=== PATIENT | male | born 1930 | race Caucasian/White ===

== ENCOUNTER 2017-03-30 10:51 | Inpatient (IN) ==
[2017-03-30 11:22] LABS: MANUAL DIFF NEEDED? NO
[2017-03-30 11:31] LABS: BASO% 0.2 % (0.0-0.8); EOS# 0.07 X1000 (0.0-0.7); EOS% 0.8 % (0.0-10.0); HEMATOCRIT 28.6 % (42.0-52.0); HEMOGLOBIN 9.2 g/dL (14.0-18.0); LYMPH# 1.99 X1000 (1.2-3.4); LYMPH% 21.9 % (20.5-51.1); MCH 31.7 PG (27-31); MCHC 32.2 g/dL (33-37); MCV 98.6 FL (81-99); MONO# 0.79 X1000 (0.11-0.59); MONO% 8.7 % (1.7-9.3); MPV 10.4 FL (7.4-10.4); NEUT% 68.4 % (42.2-75.2); PLT 236 X1000 (130-400)
[2017-03-30 11:38] LABS: PTT 38.2 Seconds (22.0-36.0)
[2017-03-30 11:39] LABS: INR 2.55; PROTIME 28.4 Seconds (9.2-11.7)
[2017-03-30 11:56] LABS: AGAP 13; ALBUMIN 3.5 g/dL (3.5-5.0); ALKALINE PHOSPHATASE 111 U/L (32-122); AMYLASE 47 U/L (20-200); BUN 25 mg/dL (8-22); CALCIUM 8.5 mg/dL (8.8-10.2); CHLORIDE 104 mmol/L (98-107); COSMO 287; GOT 12 U/L (10-34); GPT 6 U/L (10-44); LIPASE 10 U/L (13-60); POTASSIUM 4.6 mmol/L (3.5-5.1); SODIUM 141 mmol/L (136-145); TCO2 24 mmol/L (25-35); TOTAL BILIRUBIN 0.66 mg/dL (0.20-1.00); TOTAL PROTEIN 6.5 g/dL (6.3-8.3)
[2017-03-30] MEDS ORDERED: NS 1,000 ML IV ONE (12:25)
[2017-03-30] MEDS ORDERED: PROTONIX IV ONE (13:42)
[2017-03-30] MEDS ORDERED: SODIUM CHLORIDE 0.9% INJ ONE (13:42)
--- NOTE | 2017-03-30 14:16 | PROVIDER DOCUMENTATION ---
This chart was entered by Eloisa Jon Scribe, acting as scribe for Urban Hidalgo PA. HPI-Abdominal Pain/GI Problem - General Chief Complaint: Rectal Bleeding Stated Complaint: RECTAL BLEEDING Time Seen by Provider: 03/30/17 12:17 Source: patient - History of Present Illness-ABD Nature of Presenting Problems: Pt is an 87 year old male who came to the ED with a cc of rectal bleeding since yesterday. Pt reports the blood is bright red. The pt reports he is currently on blood thinners for blood clots in his legs. PT has been on blood thinners for ten years. Pt reports he quit smoking 4 years ago. Pt reports he is weak and just doesn't feel well. Denies fever, n/v, and chest pain. Quality of Pain: reports: none Onset/Duration: reports: 24 hours ago Timing: reports: still present Activities at Onset: reports: none Modifying Factors: improves with: nothing Associated Symptoms: reports: weakness Last BM: unsure Dark Stools Present?: reports: bright red blood Emesis Description: reports: none Bruising or Bleeding Gums?: No Similar Symptoms Previously?: No Recently seen or treated by another doctor?: No Review of Systems - Adult - REVIEW OF SYSTEMS - ADULT Constitutional: denies: chills, fever Eyes: reports: no symptoms reported Ears, Nose, Mouth & Throat: reports: no symptoms reported Cardiovascular: reports: no symptoms reported Respiratory: denies: cough, shortness of breath Gastrointestinal: reports: rectal bleeding. denies: abdominal pain, diarrhea, nausea, vomiting Genitourinary: reports: no symptoms reported Musculoskeletal: reports: muscle weakness. denies: frequent leg cramps, joint swelling, neck pain Integumentary: reports: no symptoms reported Neurological: reports: no symptoms reported Psychiatric: reports: no symptoms reported Endocrine: reports: no symptoms reported Hematologic/Lymphatic: reports: no symptoms reported Allergic/Immunologic: reports: no symptoms reported All Other Systems: Reviewed and Negative Past History - Adult - PAST MEDICAL HISTORY-ADULT Review of Records: reports: Nursing Assessment Review Major Childhood Illnesses: reports: denies history Cardiovascular: reports: denies history Respiratory: reports: denies history Gastrointestinal: reports: denies history Obstetrical/Gynecological: reports: denies history Genitourinary: reports: denies history Musculoskeletal: reports: denies history Neurological: reports: denies history Endocrine/Immune: reports: denies history Other Conditions: reports: denies history - IMMUNIZATION STATUS Childhood Immunizations: See Nurse Assessment Flu Vaccine: See Nurse Assessment - FAMILY HISTORY Family History: reviewed, not pertinent Physical Exam-General - PHYSICAL EXAM-ADULT Initial Vital Signs Reviewed: Yes - CONSTITUTIONAL General Appearance: alert, mild distress - EYES Eyes: PERRL/EOMI, pink conjunctivae - HEAD, EARS, NOSE, MOUTH & THROAT HENMT: normocephalic/atraumatic, moist mucous membranes - NECK Neck: non-tender, full range of motion - RESPIRATORY Respiratory: chest non-tender, lungs clear, normal breath sounds - CARDIOVASCULAR Cardiovascular: normal peripheral pulses, regular rate, rhythm - GASTROINTESTINAL (ABDOMEN) Abdominal Exam: normal bowel sounds, non tender, soft - GENITOURINARY Rectal Exam: normal rectal tone, black stool, blood streaked stool, other ( [place] RED BLOOD) Hemoccult Exam: heme positive stool - LYMPHATIC Lymphatic: no adenopathy - MUSCULOSKELETAL Back Exam: normal inspection, no CVA tenderness Extremity: normal range of motion, non-tender - SKIN Integumentary: normal color, normal turgor - NEUROLOGIC Neurologic: grossly normal - PSYCHIATRIC Psych/Mental Status: normal mood/affect, normal thought content, normal thought process, oriented x 3 Progress - PLAN OF CARE/RESULTS Progress/Plan/Lab Results: Vital Signs - 8 hr 03/30/17 11:07 Temperature 97.4 F L Pulse Rate 112 H Respiratory Rate 18 Blood Pressure 95/60 O2 Sat by Pulse Oximetry 100 Laboratory Results - last 24 hr 03/30/17 03/30/17 03/30/17 11:14 11:14 11:14 WBC 9.10 RBC 2.90 L Hgb 9.2 L Hct 28.6 L MCV 98.6 MCH 31.7 H MCHC 32.2 L RDW Std Deviation 14.9 H Plt Count 236 MPV 10.4 Immature Gran % (Auto) 0.0 Neut % (Auto) 68.4 Lymph % (Auto) 21.9 [place] % (Auto) 8.7 Eos % (Auto) 0.8 Baso % (Auto) 0.2 Immature Gran # (Auto) 0.00 Neut # (Auto) 6.23 Lymph # (Auto) 1.99 [place] # (Auto) 0.79 H Eos # (Auto) 0.07 Baso # (Auto) 0.02 PT 28.4 H INR 2.55 PTT (Actin FS) 38.2 H Sodium 141 Potassium 4.6 Chloride 104 Carbon Dioxide 24 L Anion Gap 13 BUN 25 H Creatinine 1.1 Estimated GFR/1.73 m2 > 60 BUN/Creatinine Ratio 23 Glucose 130 H Calculated Osmolality 287 Calcium 8.5 L Total Bilirubin 0.66 AST 12 ALT 6 L Alkaline Phosphatase 111 Total Protein 6.5 Albumin 3.5 Globulin 3.0 Albumin/Globulin Ratio 1.2 Amylase 47 Lipase 10 L Orders Category Date Time Status Saline Loc NOW Care 03/30/17 12:25 Active AMYLASE [CHEM] Stat Lab 03/30/17 11:14 Completed CBC WITH ELECTRONIC DIFF [HEME] Stat Lab 03/30/17 11:14 Completed COMPREHENSIVE METABOLIC PANEL [CHEM] Stat Lab 03/30/17 11:14 Completed LIPASE [CHEM] Stat Lab 03/30/17 11:14 Completed PROTIME WITH INR [COAG] Stat Lab 03/30/17 11:14 Completed PTT [COAG] Stat Lab 03/30/17 11:14 Completed TYPE & SCREEN [BBK] Stat Lab 03/30/17 12:33 Ordered 0.9% Sodium Chloride Inj [Ns] 1,000 ml Med 03/30/17 12:25 Active IV 999 mls/hr Result Diagrams: 03/30/17 11:14 03/30/17 11:14 - CONSULTS/PCP/HOSPITALIST Notification #1 *Consult/PCP/Hospitalist*: Dr. Dawson (GI) Time Discussed: 14:15 Reason/Comments: AGREE C ADMISSION. WILL CONSULT. #2 Consult: Keshav HAYDEN / Dr. Bates (Hospitalist) Time Discussed: 14:15 Reason/Comments: WILL ADMIT PT AND SEE IN THE ER AND WRITE ALL ORDERS. Departure - Departure Date of Disposition Decision: 03/30/17 Time of Disposition Decision: 14:14 DIAGNOSIS: GI bleed Qualifiers: GI bleed type/associated pathology: unspecified gastrointestinal hemorrhage type Qualified Code(s): K92.2 - Gastrointestinal hemorrhage, unspecified Disposition: ADMITTED INPATIENT 09 Certified Medical Emergency: Emergent Condition: Stable Referrals and Follow-Ups: Kael Thompson [Primary Care Provider] - - Critical Care Note This patient required my direct & personal management of CC.: No Attestation - Physician/ JAVED Attestation Patient care was provided by Advanced Practice Provider:: Yes Advanced Practice Provider:: Urban Hidalgo Advanced Practice Provider documentation review:: The Mid-level provider documentation, treatment plan and medical decision making was reviewed by the physician who agrees with all treatment and medical decision making by the MLP. The physician spent face to face time with patient:: No Advanced Practice Provider documentation review:: Supervising physician onsite and consulted in the evaluation and care of this patient. The physician did not have a face to face encounter with the patient. This chart was documented by the indicated scribe, (Eloisa Jon Scribe) and accurately reflects the services I performed and decisions made by me, Urban Hidalgo PA, as attested by the provider's signature.
[2017-03-30] MEDS ORDERED: VITAMIN K PO ONE ×2 (15:39→15:43)
[2017-03-30 17:43] LABS: HEMATOCRIT 24.9 % (42.0-52.0)
--- NOTE | 2017-03-30 18:43 | Diag Imaging Result Doc PS360 ---
EXAM: CT ABD/PELVIS W/ IV CONT ONLY HISTORY: painful rectal bleeding TECHNIQUE: CT abdomen and pelvis with intravenous contrast. Dose reduction protocol. COMPARISON: None. FINDINGS: There is a moderate sized hiatal hernia. Mild fatty infiltration of the liver. Normal gallbladder, pancreas, spleen, and adrenal glands. There is a mixed density mass arising from the upper pole of the right kidney measuring 5.9 x 5.3 x 5.7 cm. There are bilateral nonobstructing renal stones. No hydronephrosis. A 3.9 cm cyst arises from the lateral left kidney. There is an infrarenal abdominal aortic aneurysm measuring 5.4 cm in transverse dimension, 5.8 cm in AP dimension and at least 10 cm in length. This extends into the proximal right common iliac artery with maximum diameter of 3.3 cm. 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 Moderate atherosclerosis. No inflammation about the cecum. There are scattered colonic diverticula. The urinary bladder is moderately distended. The prostate is not enlarged. There is an inferior vena caval filter. The bones are osteopenic. Mild superior endplate compression fracture to the L4 vertebra. IMPRESSION: 1.Right renal mass consistent with a renal cell carcinoma 2.Nonobstructing renal stones 3.Large abdominal aortic aneurysm 4.Moderate sized hiatal hernia 5.Diverticulosis 6.The bones are osteopenic and there is a mild compression fracture to the L4 vertebra Electronically signed by Martin Woods 03/30/2017 6:40 PM
--- NOTE | 2017-03-30 21:19 | HISTORY AND PHYSICAL ---
PCP: Dr. Kael Thompson. CHIEF COMPLAINT: Abdominal pain, rectal bleeding. HISTORY OF PRESENT ILLNESS: Mr. 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 He has been having multiple episodes of bright red bloody stools that had filled up the toilet since yesterday, he is also having some abdominal distention and pain. He came to the ER today for evaluation with his family. When he got here he was noted to have hemoglobin and hematocrit of 9.2 and 28.6. We do not have any other laboratory data to compare to. His INR is 2.5. His chemistry is unremarkable. His vital signs are stable. We are going to give him some p.o. vitamin K and admit him to the floor for further treatment evaluation. PAST MEDICAL HISTORY: 1. BPH. 2. 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 3. History of aortic aneurysm. Lumbar spine MRI done in 2013 shows 4.2 cm infrarenal abdominal aortic aneurysm. SURGICAL HISTORY: He has had an IVC filter placed and lithotripsy. SOCIAL HISTORY: Patient quit smoking some time ago but he still dips about a can of chewing tobacco a day. He drinks occasional beer. Denies drug use. He is . He lives in assisted living here in town. FAMILY HISTORY: Noncontributory. REVIEW OF SYSTEMS: Fourteen-point review of systems was obtained found to be negative with the exception of the HPI. ALLERGIES: No known drug allergies. HOME MEDICATIONS: Flomax 0.4 mg daily, Coumadin 4 mg at bedtime. PHYSICAL EXAMINATION: VITAL SIGNS: Blood pressure is 95/60, heart rate 112, respiratory 18, O2 saturation 100% on room air, temperature is 97.4 degrees. GENERAL: This is an elderly male lying in hospital bed, no acute distress. NEUROLOGIC: The patient is awake, alert, oriented. He follows commands without focal deficits. HEENT: Head is atraumatic, normocephalic. His pupils are equal, round, reactive to light. Oral mucosa is moist. Trachea is midline. No JVD. CHEST: Clear to auscultation bilaterally. CV: Regular rate and rhythm. S1-S2 is noted. No murmurs. GI: Slightly distended and diffuse tenderness to palpation is noted. EXTREMITIES: No edema, clubbing noted. He does have venous stasis noted to both lower extremities. Pulses are diminished but palpable bilaterally. DIAGNOSTIC DATA: WBC 9.1, hemoglobin 9.2, hematocrit 28.6, platelet count 236, 000. INR 2.55, sodium 141, potassium 4.6, chloride 104, CO2 24, anion gap 13, BUN 25, creatinine 1.1, glucose 130, calcium 8.5, AST 12, ALT 6, alkaline phosphatase 111, lipase is 10. ASSESSMENT/PLAN: 1. Abdominal pain and distention/rectal bleeding: We are going to go ahead and CT the patient's abdomen and pelvis now with contrast. Will stop his Coumadin and give Vit K and consult with Dr. Dawson. We will continue IV fluids as well. 2. Acute blood loss anemia: We are going to check iron studies, type and screen and trend his hemoglobin and hematocrit every 6 hours. 3. History of abdominal aortic aneurysm: Again CT abdomen and pelvis is pending. He does have some mild abdominal distention but no signs that he is having dissection. 4. History of deep vein thrombosis: We are going to stop the patient's Coumadin especially since he has an IVC filter. We are going to give him vitamin K, check daily INR. 5. Deep vein thrombosis prophylaxis contraindicated as the patient has history of deep vein thrombosis and he has gastrointestinal bleeding. He does have an IVC filter however. Further recommendations to follow. I have seen and examined patient. I have reviewed all his lab work and Imagine studies. Patient has symptomatic anemia secondary to GI blood loss. Patient is also on coumadin with elevated INR. Will group and x-match. transfuse 1 FFP. Serial H and H. Dictated by JACKELYN Moses for Bert Bates MD cc: MD Bert Harper MD [facility]
[2017-03-30] MEDS: NS 1,000 ML IV SCH (22:04)
[2017-03-30 22:56] LABS: HEMATOCRIT 23.2 % (42.0-52.0); HEMOGLOBIN 7.3 g/dL (14.0-18.0)
[2017-03-31] MEDS ORDERED: NS 500 ML IV ONE (01:47)
[2017-03-31 02:17] LABS: INR 2.7; PROTIME 30.2 Seconds (9.2-11.7)
[2017-03-31 02:20] LABS: HEMATOCRIT 18.3 % (42.0-52.0)
[2017-03-31 02:21] LABS: HEMOGLOBIN 5.8 g/dL (14.0-18.0)
[2017-03-31] MEDS: NS 1,000 ML IV SCH ×2 (09:08→21:09)
[2017-03-31 10:25] LABS: HEMATOCRIT 24.2 % (42.0-52.0); HEMOGLOBIN 7.8 g/dL (14.0-18.0); MCH 29.9 PG (27-31); MCHC 32.2 g/dL (33-37); MCV 92.7 FL (81-99); MPV 10.1 FL (7.4-10.4); RBC 2.61 XMIL (4.7-6.1); RETIC% 2.15 % (0.8-2.1); RETIC-HE 35.4 PG (28.2-36.6)
[2017-03-31 10:52] LABS: AGAP 10; BUN 29 mg/dL (8-22); CALCIUM 7.8 mg/dL (8.8-10.2); CHLORIDE 110 mmol/L (98-107); COSMO 293; INR 1.67; MAGNESIUM 2.2 mg/dL (1.5-2.7); POTASSIUM 4.2 mmol/L (3.5-5.1); PROTIME 18.1 Seconds (9.2-11.7); SODIUM 144 mmol/L (136-145); TCO2 24 mmol/L (25-35)
[2017-03-31] MEDS: SODIUM CHLORIDE 0.9% INJ SCH (15:47)
[2017-03-31] MEDS: PROTONIX IV SCH (15:48)
--- NOTE | 2017-03-31 16:04 | PROGRESS NOTE ---
DATE: 03/31/2017 SUBJECTIVE: Today Mr. Arriaga referred to be doing a little better. He continues to be severely dizzy whenever he stands up. OBJECTIVE: Vital Signs: Blood pressure is 116/54, pulse of 80, respirations 19, temperature is 98.1 degrees. General: Mr. Arriaga is an 87-year-old male. He is in bed. He is not in any distress. HEENT: Mucosa is slightly pale. Anicteric. Acyanotic. Neck: Supple. No JVD. Chest: Good air entry bilateral. I did not appreciate any crepitations or rhonchi. Cardiovascular: Regular rate and rhythm. There are no murmurs, no rubs, no gallops. Abdomen: Soft and distended. Bowel sounds are present. Extremities: No pedal edema. The patient has bilateral lower extremity discoloration of the leg consistent with longstanding stasis dermatitis. LABORATORY DATA: WBC is 11.77, hemoglobin is 7.8. This is after 2 units of PRBC transfusion. The patient was at 5.8. Platelet count is 164,000. Chemistry is reviewed, stable. B12 is 111, which is remarkably low, and ferritin is 87, which is also relatively low for him. ASSESSMENT AND PLAN: 1. Symptomatic anemia. 2. Anemia secondary to gastrointestinal blood loss. 3. Iron deficiency and B12 deficiency. 4. Large infrarenal aortic aneurysm. We will get surgery to evaluate this. 5. Right renal mass consistent with renal cell carcinoma. Urology will be consulted, as well as Hematology/Oncology. SUMMARY: Today Mr. Arriaga continues to be dizzy secondary to anemia. Hemoglobin and hematocrit dropped to about 5.8, and the patient continued to have a rectal bleed. INR has been partially reversed with 1 unit of FFP. We will going to give him another unit of FFP. The patient has had 2 units of PRBC. We are going to top him up another unit. We want to get his hemoglobin and hematocrit around 9, to be stable enough for endoscopies. We will also replace his B12. The patient will be evaluated by surgery for the large some aneurysm and Hematology/Oncology and Urology for the left renal mass. cc: Bert Bates MD
[2017-03-31] MEDS ORDERED: GOLYTELY PO ONE (17:48)
--- NOTE | 2017-03-31 17:52 | CONSULTATION ---
DATE OF CONSULTATION: 03/31/2017 REASON FOR REFERRAL: Rectal bleeding, anemia. HISTORY OF PRESENT ILLNESS: This is an 87-year-old, white male who reports onset of rectal bleeding on Friday. He also reported some abdominal pain. No reported hematemesis. He has a history of long-term Coumadin therapy for a history of DVT. On admission his INR was 2.5. He has received vitamin K. He has received 2 units of packed red blood cells. PAST MEDICAL HISTORY: BPH, history of DVT on Coumadin therapy, history of aortic aneurysm. PAST SURGICAL HISTORY: IVC filter, lithotripsy. ALLERGIES: No known drug allergies. HOME MEDICATIONS: Thera Tears daily as needed, Coumadin 4 mg every night, hydrocodone/acetaminophen 5/325 every 6 hours as needed, and Flomax 0.4 mg daily. SOCIAL HISTORY: Quit smoking years ago but he does use chewing tobacco. He reports occasional alcohol use. . REVIEW OF SYSTEMS: Per HPI. PHYSICAL EXAMINATION: Vital Signs: Temperature 98.1 degrees, pulse 80, respirations 19, blood pressure 116/54. General: The patient is in no acute distress. HEENT: Normocephalic, atraumatic. Pupils equal, round, reactive to light. Cardiovascular: Regular rate and rhythm. Respiratory: Lung sounds essentially clear. Abdomen: Some tenderness diffusely. Extremities: Some discoloration to the lower extremities. DIAGNOSTIC RESULTS/LABORATORY: Hematology: WBC 11.77, hemoglobin 7.8, hematocrit 24.2, MCV 92.7, platelets 164,000, coagulation pro time 18.1, INR 1.67. Chemistry: Sodium 144, potassium 4.2, chloride 110, CO2 24, BUN 29, creatinine 0.9, glucose 97, calcium 7.8, magnesium 2.2, ferritin 87, total bilirubin 0.66, AST 12, ALT 6, alkaline phosphatase 111, amylase 47, lipase 10, vitamin B12 of 111, folate 18.9, TSH 2.65, free T4 of 1.28. ASSESSMENT AND PLAN: 1. Rectal bleeding. 2. Abdominal pain. 3. Anemia. 4. History of Deep vein thrombus on chronic Coumadin therapy. 5. History of abdominal aortic aneurysm. PLAN: Continue symptomatic treatment, supportive care. Continue to monitor hemoglobin and hematocrit, monitor for active bleeding. His Coumadin has been held. We will plan to proceed with a colonoscopy once his INR is at an acceptable range. Transfuse further packed red blood cells as needed. I have discussed this case with Dr. Dawson. Thank you for this consultation. Dictated by JACKELYN Jon for Heriberto Dawson MD cc: JACKELYN Cat MD
--- NOTE | 2017-03-31 20:42 | CONSULTATION ---
DATE OF CONSULTATION: 03/31/2017 REASON FOR CONSULTATION: I have been asked to evaluate this patient because of an abdominal aortic aneurysm. HISTORY: This is an 87-year-old gentleman admitted with rectal bleeding. He is on lifelong Coumadin therapy for history of DVT. 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 He does not seem to realize that he had an aneurysm. PAST MEDICAL HISTORY: Pertinent for benign prostatic hypertrophy and history DVT with filter placement. He has had lithotripsy in the past. SOCIAL HISTORY: He does not smoke. Occasionally drinks beer. He lives at [place] along with his of 60 years. FAMILY HISTORY: Apparently his family has a history of venous thrombosis. REVIEW OF SYSTEMS: Pertinent for poor vision in his right eye from an injury and a history of venous disease. Denies any chest pain, shortness of breath, or abdominal symptoms. Review of systems otherwise unremarkable. MEDICATIONS: Include Flomax 0.4 mg daily, Coumadin 4 mg at bedtime. ALLERGIES: He has no known drug allergies. PHYSICAL EXAM: Vital signs: He is afebrile, heart rate 75, respiratory rate 16, blood pressure 128/55. He has a clouded cornea on the right side. No cervical adenopathy. Lungs: Bilateral breath sounds. Heart: Regular rate and rhythm. Abdomen: Soft, nontender. A pulsatile mass is present. Extremities: Femoral pulses are present. He has a prominent popliteal pulse on the left, not so much so on the right. Did not palpate any dorsalis pedis pulses. I think he does have some 1+ posterior tibial pulses. He has stasis dermatitis in both legs. He is awake, alert and oriented. LABS AND DIAGNOSTICS: Hemoglobin today was 5.8, hematocrit 18.3. PT was 30, INR 2.7, BUN 29, creatinine 0.9. CT was reviewed. This reveals a right renal mass, probable renal cell carcinoma. He has an infrarenal abdominal aortic aneurysm measuring 5.4 cm in transverse diameter and 5.8 cm in AP diameter. 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 ASSESSMENT: A 5.8 cm infrarenal abdominal aortic aneurysm that is asymptomatic. 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 He has a right renal mass consistent with renal cell carcinoma. He has gastrointestinal bleeding possibly from Coumadin therapy. RECOMMENDATIONS: I think this aneurysm should be addressed. I do think he is a candidate for an endovascular approach. He has other medical issues that must be dealt with including his GI bleeding currently. I think Urology is being consult regarding his right renal mass. I will follow along. cc: Juan Carlos Castellanos MD
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
[2017-04-01 06:55] LABS: INR 1.26; PROTIME 13.4 Seconds (9.2-11.7)
[2017-04-01 07:03] LABS: HEMATOCRIT 22.7 % (42.0-52.0); HEMOGLOBIN 7.4 g/dL (14.0-18.0); MCH 31.4 PG (27-31); MCHC 32.6 g/dL (33-37); MCV 96.2 FL (81-99); MPV 10.2 FL (7.4-10.4); RBC 2.36 XMIL (4.7-6.1)
[2017-04-01 07:08] LABS: AGAP 11; BUN 22 mg/dL (8-22); CALCIUM 7.8 mg/dL (8.8-10.2); CHLORIDE 112 mmol/L (98-107); COSMO 295; POTASSIUM 3.8 mmol/L (3.5-5.1); SODIUM 147 mmol/L (136-145); TCO2 24 mmol/L (25-35)
[2017-04-01] MEDS ORDERED: AMIDATE ONE (07:31)
[2017-04-01] MEDS ORDERED: XYLOCAINE-MPF 2% ONE (07:35)
[2017-04-01] MEDS ORDERED: FENTANYL ONE (07:36)
[2017-04-01] MEDS ORDERED: CITRATE OF MAGNESIA PO ONE (08:15)
[2017-04-01] MEDS ORDERED: GOLYTELY PO ONE (08:18)
[2017-04-01] MEDS: VITAMIN B-12 PO SCH (09:36)
[2017-04-01] MEDS: PROTONIX IV SCH (14:48)
[2017-04-01] MEDS: SODIUM CHLORIDE 0.9% INJ SCH (14:48)
--- NOTE | 2017-04-01 14:50 | PROGRESS NOTE ---
DATE: 04/01/2017 SUBJECTIVE: The patient is resting comfortably in bed. No acute events noted overnight. OBJECTIVE: Vital Signs: Temperature 97.9 degrees, blood pressure 110/60, heart rate 70, respirations 18, O2 saturations 100% on room air. General: This is an elderly male, lying in bed, in no acute distress. Head: Normocephalic, atraumatic. Heart: S1, S2. Normal. Regular rate and rhythm. Lungs: Clear to auscultation bilaterally. No wheezing. No rales. No rhonchi. Abdomen: Positive bowel sounds. Soft. Distended. Extremities: No edema. No cyanosis. Neurologic: The patient is alert and oriented x3. LABS: Hemoglobin 7.4, hematocrit 22. Sodium 147, potassium 3.8, chloride 112. CO2 24, BUN 22, creatinine 0.8. ASSESSMENT AND PLAN: 1. Gastrointestinal bleed. The patient is currently undergoing the prep for a colonoscopy. 2. Abdominal aortic aneurysm. General Surgery is following. 3. Right renal mass. This is concerning for renal cell carcinoma. Urology is following. 4. Anemia of acute blood loss. We will transfuse 1 unit of packed red blood cells. 5. Vitamin B12 deficiency. The patient is on vitamin B12 replacement. 6. Deep vein thrombosis prophylaxis. Will start the patient on sequential compression devices. cc: Joyce Ashley MD
[2017-04-01] MEDS ORDERED: NS 500 ML ONE (15:34)
[2017-04-01 19:06] LABS: HEMATOCRIT 27.7 % (42.0-52.0); HEMOGLOBIN 9.1 g/dL (14.0-18.0)
--- NOTE | 2017-04-02 03:25 | OPERATIVE NOTE ---
PROCEDURE DATE: 04/01/2017 PROCEDURE: Flexible sigmoidoscopy. Colonoscopy attempted. PREOPERATIVE DIAGNOSIS: Lower gastrointestinal bleed. POSTOPERATIVE DIAGNOSIS: Diverticulosis. Poor prep. M MEDICATION: MAC as per anesthesia. SCOPE USED: Olympus Cfh-Q 90. HISTORY: This is an 87-year-old gentleman on Coumadin admitted to hospital with acute GI bleed and profound anemia. Colonoscopy was schedule to identify the etiology and treat accordingly. DESCRIPTION OF PROCEDURE: Informed consent obtained from the patient. The procedure, risks, benefits, alternatives were explained in layman's terms. He understood. All his pertinent questions were answered. The patient was brought to the endoscopy unit and was premedicated as per anesthesia. After adequate sedation, while he was lying in left lateral position, a digital rectal exam was performed showing altered blood in the rectal wall. The scope was then gently introduced into the rectum where I saw the rectal mucosa covered with altered blood and fecal matter. Vigorous irrigation and suctioning was employed to cleanse. And, I was able to advance the scope through the rectum into the sigmoid colon, up to the distal descending colon where solid stools were seen and further advancement was not possible. Altered blood and blood clots were seen adherent to the colonic mucosa. No evidence of active bleeding was seen. The scope was withdrawn since in the rectum where I did not see anything. The patient tolerated the procedure well, no complications noted. Patient was then transferred to the recovery area in a stable condition. IMPRESSION: Lower gastrointestinal bleed, most likely diverticular; however, other possibilities are also likely. PLAN: The plan would be to re-prep him today with first a bottle of magnesium citrate and then GoLYTELY and re-do colonoscopy tomorrow. I have explained the findings to the patient. He understood this and answered all his pertinent questions. cc: MD YEN MattD
[2017-04-02 04:52] LABS: HEMATOCRIT 28.5 % (42.0-52.0); HEMOGLOBIN 9.4 g/dL (14.0-18.0); MCH 30.7 PG (27-31); MCV 93.1 FL (81-99); RBC 3.06 XMIL (4.7-6.1)
[2017-04-02 05:13] LABS: AGAP 12; BUN 12 mg/dL (8-22); CALCIUM 7.9 mg/dL (8.8-10.2); CHLORIDE 106 mmol/L (98-107); COSMO 284; POTASSIUM 3.5 mmol/L (3.5-5.1); SODIUM 143 mmol/L (136-145); TCO2 25 mmol/L (25-35)
[2017-04-02] MEDS: DILAUDID IV PRN ×3 (09:16→23:46)
[2017-04-02] MEDS: VITAMIN B-12 PO SCH (09:17)
[2017-04-02] MEDS ORDERED: XYLOCAINE-MPF 2% ONE (12:27)
[2017-04-02] MEDS ORDERED: DIPRIVAN 1% ONE (12:27)
[2017-04-02] MEDS ORDERED: VERSED ONE (12:42)
[2017-04-02] MEDS: PROTONIX IV SCH (14:49)
--- NOTE | 2017-04-02 16:50 | OPERATIVE NOTE ---
PROCEDURE DATE: 04/02/2017 PROCEDURE: Colonoscopy. PREOPERATIVE DIAGNOSIS: 1. Lower gastrointestinal bleed. 2. Anemia secondary to bleed. POSTOPERATIVE DIAGNOSES: 1. Diverticular bleeding. 2. Diverticulosis. Otherwise normal colon. HISTORY: This is an 87-year-old white male who was on Coumadin, admitted to the hospital with bright red blood per rectum. Colonoscopy was attempted yesterday, but he was not cleaned out well. He had repeat cleaning done and was rescoped today for diagnostic as well as therapeutic purposes. DETAILS OF OPERATION: Informed consent obtained from the patient. The procedure, risks, benefits, alternatives were explained in layman's terms. He understood. All the pertinent questions were answered. Patient was brought to the endoscopy unit and was premedicated as per Anesthesia. After adequate sedation, while he was lying in left lateral position, digital rectal exam was performed, which was normal. The scope was then gently introduced into the rectum and advanced under direct vision through the parts of colon, all the way up to the cecum. The cecum was identified by the ileocecal valve and the appendiceal orifice. The scope was then withdrawn, paying careful attention to details. Preparation was good. The visualized portion of the colon revealed some brownish sediments of stool present on the right side of the colon, but starting from the descending colon onwards, there were some specks of older blood or end blood in all the colon mucosa. There were scattered diverticula seen throughout the left side of the colon, but predominantly in the sigmoid colon. Even after cleansing the entire left side with water and suctioning out, I did not see any spot that I could say that he was bleeding from. Vigorous irrigation and suctioning were employed multiple times to clean the area, and I again, no spot was seen actively bleeding or any stigmata of recent bleed seen that I could treat. Retroflexed view of rectum revealed no pathology either. The scope was then removed. Patient tolerated the procedure well. No complications noted. Patient was then transferred to the recovery area in a stable condition. IMPRESSION: 1. Diverticular bleeding, resolved. 2. Diverticulosis. Otherwise normal colon. RECOMMENDATION: Advised him to start Colace 1 p.o. every day. Continue a full liquid diet and advance as tolerated. If he continues to be stable, hemoglobin and hematocrit stable and no further bleeding, the diet can be advanced and he can be discharged to be followed up at the office as needed. As far as the Coumadin goes, I would leave it up to the primary care and manager mechanical maintenance to decide if he needs to be on. I would start use judiciously. cc: Heriberto Dawson MD
--- NOTE | 2017-04-02 18:59 | PROGRESS NOTE ---
DATE: 04/02/2017 SUBJECTIVE: The patient is resting comfortably in bed. He has no complaints at this time. OBJECTIVE: Vital Signs: Temperature 98.7 degrees, blood pressure 111/51, heart rate 64, respirations 18, O2 saturations 97% on 2 L nasal cannula. General: This is an elderly male, lying in bed, in no acute distress. Heart: S1, S2. Normal. Regular rate and rhythm. Lungs: Clear to auscultation bilaterally. No crackles. No rales. Abdomen: Positive bowel sounds. Soft, nontender, nondistended. Extremities: No edema. No cyanosis. No calf tenderness. Neurologic: The patient is alert and oriented x4. LAB: White blood cell count 9.4, hemoglobin 9.4, hematocrit 28, platelets 153, 000. Sodium 143, potassium 3.5, chloride 106, CO2 25, BUN 12, creatinine 0.8, glucose 90. ASSESSMENT AND PLAN: 1. Gastrointestinal bleed. The patient is scheduled for a colonoscopy today. 2. Abdominal aortic aneurysm. General Surgery is following. 3. Right renal mass. Urology is following. 4. Anemia. Stable. 5. Vitamin B12 deficiency. Continue on vitamin B12 replacement. 6. h/o DVT. The patient's coumadin is on hold. cc: Joyce Ashley MD MTDD
[2017-04-02] MEDS: COLACE PO SCH (21:02)
[2017-04-03 05:11] LABS: HEMATOCRIT 29.4 % (42.0-52.0); HEMOGLOBIN 9.3 g/dL (14.0-18.0); MCH 30.6 PG (27-31); MCHC 31.6 g/dL (33-37); MCV 96.7 FL (81-99); MPV 10.7 FL (7.4-10.4); RBC 3.04 XMIL (4.7-6.1)
[2017-04-03 05:27] LABS: MAGNESIUM 2.2 mg/dL (1.5-2.7)
[2017-04-03 05:37] LABS: AGAP 10; BUN 10 mg/dL (8-22); CALCIUM 7.8 mg/dL (8.8-10.2); CHLORIDE 105 mmol/L (98-107); COSMO 280; POTASSIUM 4.3 mmol/L (3.5-5.1); SODIUM 141 mmol/L (136-145); TCO2 26 mmol/L (25-35)
[2017-04-03] MEDS ORDERED: NEUTRA-PHOS PO ONE (06:50)
[2017-04-03] MEDS: DILAUDID IV PRN ×4 (08:29→23:56)
[2017-04-03] MEDS: VITAMIN B-12 PO SCH (08:30)
--- NOTE | 2017-04-03 08:32 | Diag Imaging Result Doc PS360 ---
EXAM: CHEST-PORTABLE HISTORY: dyspnea TECHNIQUE: Portable upright AP COMPARISON: None. FINDINGS: The left hemidiaphragm is elevated. The lungs are otherwise well expanded. The heart is not enlarged. The vessels are not distended. There is atelectasis or a small infiltrate in the left base. Questionable tiny left pleural effusion. IMPRESSION: Left basilar atelectasis versus a small infiltrate. Follow-up PA and lateral recommended. Electronically signed by Martin Woods 04/03/2017 8:29 AM
[2017-04-03] MEDS: ZITHROMAX 500 MG/NS 500 MG/250 ML IVPB IV SCH (12:38)
[2017-04-03] MEDS: ROCEPHIN 1 GM in NS 50 ML IV SCH (12:38)
[2017-04-03] MEDS: SODIUM CHLORIDE 0.9% INJ SCH (13:55)
[2017-04-03] MEDS: PROTONIX IV SCH (13:55)
[2017-04-03] MEDS: COLACE PO SCH (20:20)
--- NOTE | 2017-04-03 20:56 | PROGRESS NOTE ---
DATE: 04/03/2017 SUBJECTIVE: The patient is resting comfortably in bed. He states that he feels okay. He just complains of joint aches and pains. He did have 1 bowel movement today. OBJECTIVE: Vital Signs: Temperature is 98.2 degrees, blood pressure 132/69, heart rate 72, respirations 18, O2 saturations 98% on 3 L nasal cannula. General: This is an elderly male lying in bed, in no acute distress. Heart: S1, S2. Normal. Regular rate and rhythm. Lungs: Equal air entry bilaterally. No crackles. No rales. Abdomen: Positive bowel sounds. Soft, nontender, nondistended. Extremities: Trace pedal edema. No cyanosis. No calf tenderness. Neurologic: The patient is alert and oriented x4. LABORATORY: White blood cell count 11, hemoglobin 9.3, hematocrit 29, platelets 152,000. Sodium 141, potassium 4.6, chloride 105, CO2 26, BUN 10, creatinine 0.7, glucose 102, phosphorus 2.5, magnesium 2.2. ASSESSMENT AND PLAN: 1. Gastrointestinal bleed secondary to a diverticular bleed. So far, the patient's hemoglobin and hematocrit are stable. We will continue to monitor the patient's hemoglobin and hematocrit closely. 2. Suspected left basilar pneumonia. The patient has been started on Rocephin and azithromycin. 3. Leukocytosis. The patient is on antibiotic therapy. We will monitor for improvement. 4. Abdominal aortic aneurysm. The patient has stated that he does not want surgical intervention. 5. Right renal mass. This is suspicious for renal cell carcinoma. The patient has been assessed by the urologist. The patient again has stated that she does not want surgical intervention. 6. Anemia. Stable. 7. Vitamin B12 deficiency. Continue on vitamin B12 replacement. 8. Hypophosphatemia. We will give the patient a dose of Neutra-Phos today. 9. Hypertension. Controlled. 10. Deep vein thrombosis prophylaxis. Continue with SCDs. 11. The patient is stable for transfer to CICU. cc: Joyce Ashley MD
[2017-04-03] MEDS: DUONEB (A & A) INH SCH (22:54)
[2017-04-04] MEDS: DUONEB (A & A) INH SCH ×4 (03:30→20:29)
[2017-04-04] MEDS: DILAUDID IV PRN ×3 (04:39→20:55)
[2017-04-04 05:05] LABS: MANUAL DIFF NEEDED? NO
[2017-04-04 05:17] LABS: BASO% 0.1 % (0.0-0.8); EOS% 3.8 % (0.0-10.0); HEMATOCRIT 28.1 % (42.0-52.0); HEMOGLOBIN 8.8 g/dL (14.0-18.0); LYMPH% 21.3 % (20.5-51.1); MCH 30.3 PG (27-31); MCHC 31.3 g/dL (33-37); MCV 96.9 FL (81-99); MONO# 0.94 X1000 (0.11-0.59); MONO% 11.8 % (1.7-9.3); MPV 10.8 FL (7.4-10.4); PLT 149 X1000 (130-400)
[2017-04-04 05:36] LABS: AGAP 10; BUN 10 mg/dL (8-22); CALCIUM 8.5 mg/dL (8.8-10.2); CHLORIDE 103 mmol/L (98-107); COSMO 280; POTASSIUM 3.9 mmol/L (3.5-5.1); SODIUM 141 mmol/L (136-145); TCO2 28 mmol/L (25-35)
--- NOTE | 2017-04-04 07:32 | Diag Imaging Result Doc PS360 ---
CHEST-PORTABLE - 04/04/2017 INDICATION: dyspnea TECHNIQUE: COMPARISON: 04/03/2017 FINDINGS: Stable upsloping of the left hemidiaphragm. Stable trace atelectasis in the left lung base. Otherwise no infiltrates. Heart size is top normal. No pneumothorax or large effusion. IMPRESSION: No change from prior. Electronically signed by Oziel Odonnell 04/04/2017 7:30 AM
[2017-04-04] MEDS: ZITHROMAX 500 MG/NS 500 MG/250 ML IVPB IV SCH (08:41)
[2017-04-04] MEDS: ROCEPHIN 1 GM in NS 50 ML IV SCH (08:41)
[2017-04-04] MEDS: VITAMIN B-12 PO SCH (08:42)
--- NOTE | 2017-04-04 11:30 | PROGRESS NOTE ---
DATE: 04/04/2017 SUBJECTIVE: The patient states he is feeling a little better. Family is at the bedside. They denied any recent blood in the stool. Hemoglobin and hematocrit today are 8.8 and 28.1. OBJECTIVE: Vital Signs: Temperature 97.6 degrees, pulse 74, respirations 18, blood pressure 128/62. General: The patient is awake and alert in no acute distress. HEENT: Normocephalic, atraumatic. Pupils equal, round, reactive to light. Sclerae nonicteric. Cardiovascular: Regular rate and rhythm. Abdomen: Obese but soft. Positive bowel sounds. Nontender. LABORATORY RESULTS: Hematology: WBC 7.99, hemoglobin 8.8, hematocrit 28.1, MCV 96.7, platelet 149,000. Chemistry: Sodium 141, potassium 3.9, chloride 103, CO2 28, BUN 10, creatinine 0.8, glucose 97. Colonoscopy on 04/02/2017 showed most likely diverticular bleeding that has resolved and diverticulosis. ASSESSMENT AND PLAN: He is recommended to take Colace daily. We will continue to follow hemoglobin and hematocrit. Followed for any active bleeding. As far as his anticoagulation, would leave that up to primary care on if he needs are when he needs to be restarted on that. Gastroenterology will be available as needed. Dictated by JACKELYN Jon for Heriberto Dawson MD cc: JACKELYN Cat MD
[2017-04-04] MEDS: PROTONIX IV SCH (14:40)
[2017-04-04] MEDS ORDERED: MIRALAX PO ONE (14:44)
--- NOTE | 2017-04-04 15:30 | Diag Imaging Result Doc PS360 ---
EXAM: KUB ABDOMEN INDICATION: abd distended TECHNIQUE: 2 views COMPARISON: None. FINDINGS: There are multiple loops of colon exhibiting moderate gaseous distention. This is actually very similar to a previous CT dated 03/30/2017. It is nonspecific. There is no definite large volume free abdominal gas given the limitations of a supine radiograph. IVC filter is noted. IMPRESSION: Nonspecific moderately gas-distended loops of colon as described. Electronically signed by Urban Cunningham 04/04/2017 3:28 PM
--- NOTE | 2017-04-04 15:31 | PROGRESS NOTE ---
DATE: 04/04/2017 SUBJECTIVE: Today Mr. Arriaga refers to be hurting in his abdomen. He has not had any bowel movement, but he has been able to eat his meals today. No vomiting, but has some abdominal discomfort. OBJECTIVE: Vital Signs: Blood pressure is 128/62, pulse of 74, respirations 18, temperature 97.6 degrees. General exam: Mr. Arriaga is an 87-year-old, male. He is in bed. He is in mild and painful distress. HEENT: Mucosa is pink and moist. Anicteric. Acyanotic. Neck: Supple. Chest: Good air entry bilaterally. No crepitations. Cardiovascular: Regular rate and rhythm. There are no murmurs. Abdomen: Soft, distended. It is slightly tympanic. Bowel sounds are slightly hyperactive. No hepatosplenomegaly. Extremities: No pedal edema. LEATHER PATCHER: Patient is awake, alert and oriented. LABORATORY DATA: CBC is reviewed and is unremarkable. Hemoglobin and hematocrit is 8.8 and 28.1. Chemistry is also reviewed, is completely unremarkable. Patient vitamin D level is 7.6. ASSESSMENT: 1. Gastrointestinal bleed secondary to diverticular bleeding. Hemoglobin and hematocrit is stable. 2. Suspected left basilar pneumonia. Patient is on antibiotic. I think today is day 2 on antibiotics. We will plan to continue on this. 3. Right renal mass suspicious for renal cell cancer. Patient has been evaluated by urology; however, he declines to any surgical intervention. 4. Extensive abdominal aortic aneurysm. This has also been evaluated by surgery. Patient declines to surgical intervention. 5. B 12 and vitamin D deficiencies. We will continue to replace them. 6. Hypertension is controlled. 7. 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 The patient would eventually need to be on blood thinner. He came in with supratherapeutic INR because of Coumadin, so I think it would be reasonable to start him on Eliquis. 8. Abdominal distention questionable for constipation. We will do a KUB to rule out any mechanical obstruction pattern. Hopefully if it is just constipation, will address it with bowel regimen. cc: Bert Bates MD
--- NOTE | 2017-04-04 20:17 | Extremity Venous Study ---
PROCEDURE NAME: Venous U/S Bilateral Legs - 04/04/2017 BILATERAL LOWER EXTREMITY VENOUS ULTRASOUND: POST GRADUATE INTERNSHIP: [place]. INDICATION: History of DVT with pain. REQUESTING PHYSICIAN: Dr. Gonzalez. FINDINGS: The deep and superficial veins of bilateral lower extremity were visualized along their course. There was lack of compressibility in several locations with visible thrombus. Most notably there is evidence of a subacute thrombus in the right deep in the vein was more chronic appearing thrombus in the bilateral common femoral veins, the right popliteal and left superficial femoral vein. There is a superficial thrombus with thickening of the smiley of the right greater saphenous vein and forepart rounder within the calf. Overall there was maintained flow in the deep system in the proximal portion of the greater saphenous veins bilaterally. 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 cc: MD Joyce Lyn MD
[2017-04-04] MEDS: COLACE PO SCH (20:55)
[2017-04-05] MEDS: DILAUDID IV PRN (04:01)
[2017-04-05] MEDS: DUONEB (A & A) INH SCH ×4 (04:13→21:20)
[2017-04-05 05:05] LABS: MANUAL DIFF NEEDED? NO
[2017-04-05 05:09] LABS: BASO% 0.1 % (0.0-0.8); EOS# 0.29 X1000 (0.0-0.7); EOS% 3.9 % (0.0-10.0); HEMATOCRIT 25.7 % (42.0-52.0); IMM GRAN# 0.02 X1000 (0.0-0.04); IMM GRAN% 0.3 % (0.0-0.5); LYMPH# 1.59 X1000 (1.2-3.4); LYMPH% 21.2 % (20.5-51.1); MCH 30.2 PG (27-31); MCHC 31.1 g/dL (33-37); MONO% 13.3 % (1.7-9.3); MPV 10.3 FL (7.4-10.4); NEUT% 61.2 % (42.2-75.2); PLT 157 X1000 (130-400); RBC 2.65 XMIL (4.7-6.1)
[2017-04-05 05:26] LABS: AGAP 9; BUN 12 mg/dL (8-22); CHLORIDE 105 mmol/L (98-107); COSMO 283; POTASSIUM 3.7 mmol/L (3.5-5.1); SODIUM 142 mmol/L (136-145); TCO2 28 mmol/L (25-35)
[2017-04-05] MEDS ORDERED: DILAUDID ONE (08:00)
[2017-04-05] MEDS: ZITHROMAX 500 MG/NS 500 MG/250 ML IVPB IV SCH (08:35)
[2017-04-05] MEDS: VITAMIN B-12 PO SCH (08:36)
[2017-04-05] MEDS: ROCEPHIN 1 GM in NS 50 ML IV SCH (08:40)
--- NOTE | 2017-04-05 13:26 | PROGRESS NOTE ---
DATE: 04/05/2017 SUBJECTIVE: No bleeding overnight per the nurse. Hemodynamically stable. Denies any abdominal pain. No lower extremity pain. No fevers. OBJECTIVE: Pulse 70, blood pressure 126/58, oxygen saturation 100% on 2 L.General: He is alert. Abdomen: Soft, protuberant but nondistended. I do not feel a pulsatile mass. Peripheral vascular exam: Feet are well perfused with palpable PT and DP pulses. ASSESSMENT AND PLAN: This is an 87-year-old male with gastrointestinal bleed, hematocrit has been stable, and abdominal aortic aneurysm 6 cm the meets criteria for repair. Right now we will monitor. His anticoagulation has been reversed. Will monitor his hematocrits given the setting of a lower GI bleed. I think Dr. Castellanos has plans to repair his aneurysms when more stable in the future. He is overall doing okay. I think he is asymptomatic from an aneurysm standpoint. cc: Deepika Chapin MD
[2017-04-05] MEDS ORDERED: FLEET ENEMA PR PRN (14:07)
[2017-04-05] MEDS ORDERED: RELISTOR SUBQ ONE (14:29)
--- NOTE | 2017-04-05 15:05 | PROGRESS NOTE ---
DATE: 04/05/2017 SUBJECTIVE: Today Mr. Arriaga refers to be hurting his abdomen which is extremely distended and he is wanting to get something to make his bowel move. Mr. Arriaga has not had any bowel movement since his admission. OBJECTIVE: Vital signs: Blood pressure is 115/54, pulse of 79, respirations 18 , temperature 98.1 degrees. General: Mr. Arriaga is 87-year-old male. He is in bed. He is in some distress. HEENT: Mucosa is pink and moist. Anicteric. Acyanotic. Neck: Supple. Chest: Good air entry bilaterally. No crepitations. No rhonchi. Cardiovascular: Regular rate and rhythm. Abdomen: Soft, is distended. Tympanic bowel sounds are hypoactive. No hepatosplenomegaly. Extremities: No pedal edema. LABORATORY DATA: WBC is 7.51, hemoglobin is 8.0, platelet count of 157,000. Chemistries reviewed completely normal. ASSESSMENT: 1. Anemia on presentation secondary to diverticular bleed. 2. Left lower lobe infiltrate. I think this is mainly atelectasis. The patient does not have any symptoms of pneumonia. White cell count is stable. I will therefore discontinue the antibiotics. 3. Abdominal distention likely secondary to constipation with ileus. Patient is also getting hydromorphone which could potentially have made things worse. I will discontinue the narcotics. I will give the patient 1 dose of methylnaltrexone, will also give him enema to help with bowel movement. 4. Extensive abdominal aorta aneurysm. Patient has been evaluated by surgery. Patient has declined to any surgical intervention. 5. B12 and folate deficiencies. Will continue replacing them. 6. Right deep femoral vein deep vein thrombosis. Will continue with Lovenox for now until patient is stable and will switch to Eliquis. Patient also has chronic deep vein thromboses in the lower extremities. I think he would eventually be on lifelong anticoagulation. So in general I think Mr. Arriaga is stable but critical. Continues to have abdominal distention which we think is due to ileus and constipation. Will address this with bowel regimen, discontinue the narcotics and give the patient methylnaltrexone. I will review the patient later on today to see how he is doing. Of note patient hemoglobin and hematocrit dropped slightly to 8.0, we going to keep eye on this. cc: Bert Bates MD Addendum: I reviewed patient later in the evening, he was feeling better. He had had bowel movement with the enema. MTDD
[2017-04-05] MEDS: SODIUM CHLORIDE 0.9% INJ SCH (15:18)
[2017-04-05] MEDS: LOVENOX SUBQ SCH (15:18)
[2017-04-05] MEDS: PROTONIX IV SCH (15:18)
[2017-04-05] MEDS: COLACE PO SCH (20:30)
[2017-04-06] MEDS: DUONEB (A & A) INH SCH ×4 (03:35→22:10)
[2017-04-06 05:03] LABS: MANUAL DIFF NEEDED? NO
[2017-04-06 05:23] LABS: AGAP 12; BUN 10 mg/dL (8-22); CHLORIDE 103 mmol/L (98-107); COSMO 284; MAGNESIUM 2.2 mg/dL (1.5-2.7); POTASSIUM 3.4 mmol/L (3.5-5.1); SODIUM 143 mmol/L (136-145); TCO2 28 mmol/L (25-35)
[2017-04-06 05:26] LABS: BASO% 0.3 % (0.0-0.8); EOS# 0.18 X1000 (0.0-0.7); EOS% 2.5 % (0.0-10.0); HEMATOCRIT 26.5 % (42.0-52.0); HEMOGLOBIN 8.4 g/dL (14.0-18.0); IMM GRAN# 0.02 X1000 (0.0-0.04); IMM GRAN% 0.3 % (0.0-0.5); LYMPH% 24.8 % (20.5-51.1); MCH 30.3 PG (27-31); MCHC 31.7 g/dL (33-37); MCV 95.7 FL (81-99); MONO# 0.83 X1000 (0.11-0.59); MONO% 11.4 % (1.7-9.3); MPV 10.1 FL (7.4-10.4); NEUT% 60.7 % (42.2-75.2); PLT 176 X1000 (130-400); RBC 2.77 XMIL (4.7-6.1)
[2017-04-06] MEDS: LOVENOX SUBQ SCH ×2 (06:20→18:03)
--- NOTE | 2017-04-06 07:51 | Diag Imaging Result Doc PS360 ---
EXAM: KUB ABDOMEN INDICATION: constipation TECHNIQUE: One view COMPARISON: 04/04/2017 FINDINGS: There has been interval improvement of the gaseous distended loops of bowel seen on the previous study. On the current study there is still mild distention of several loops. There is no evidence of large volume free abdominal gas. The abdomen is stable, otherwise. IMPRESSION: Interval improvement of gaseous distended loops of bowel. Electronically signed by Urban Cunningham 04/06/2017 7:49 AM
[2017-04-06] MEDS ORDERED: KLOR-CON PO ONE (09:02)
[2017-04-06] MEDS: VITAMIN B-12 PO SCH (09:25)
[2017-04-06] MEDS: PROTONIX IV SCH (13:11)
[2017-04-06] MEDS ORDERED: FLUZONE QUAD 2017-2018 SYRINGE IM ONE (13:37)
--- NOTE | 2017-04-06 15:20 | PROGRESS NOTE ---
DATE: 04/06/2017 SUBJECTIVE: He denies any abdominal pain. He feels is a little constipated. No leg pain. OBJECTIVE: Vital signs: No fevers. Pulse 70, blood pressure 125/54, O2 saturation 98% on 2 L. Abdomen: Soft, nontender, nondistended. Palpable pedal pulses with no lower extremity edema. Cardiovascular: Normal rate, regular rhythm. General: He is alert. LABORATORY: Hematocrit stable at 26. Creatinine 0.8. ASSESSMENT AND PLAN: An 87-year-old male with a abdominal aneurysm, GI bleed. He is asymptomatic from an aneurysm standpoint and hematocrit seems to be stable from a GI bleed standpoint. He is off of his anticoagulation. His lower extremities are well perfused. We will continue to monitor. will be back tomorrow and we will make plans for aneurysm repair when he is stable clinically. cc: Deepika Chapin MD MTDD
--- NOTE | 2017-04-06 16:19 | PROGRESS NOTE ---
DATE: 04/06/2017 SUBJECTIVE: This patient states that he is feeling better. He is still complaining of abdominal discomfort which is distended. He has been passing gas and he has been having bowel movements. Surgery department is following this patient. We did an abdominal x-ray that showed an interval improvement of gaseous distended loops of bowel. This patient's hemoglobin has been stable, so I will transfer this patient to the medical floor. OBJECTIVE: Vital Signs: Temperature 98.3 degrees, pulse 82, respiratory rate 20, blood pressure 133/65, oxygen saturation 98 on room air. HEENT: Head normocephalic. No trauma. PERRLA. Neck: Supple. No JVD. No masses. Central trachea. Chest: Clear to auscultation. No wheezing. No rales. Abdomen: Soft, distended, tympanic. Bowel sounds present. I cannot feel hepatosplenomegaly. Extremities: No edema. No clubbing. No cyanosis. He has chronic skin changes at the level of the lower extremities from the mid leg down. Neurological: The patient is alert and oriented x3. He moves all 4 extremities. LABORATORY: WBC 7.2, hemoglobin 8.4, hematocrit 26.5, platelet 176,000. Sodium 143, potassium 3.4, chloride 103, bicarbonate 28, BUN 10, creatinine 0.8, glucose 102, calcium 8, magnesium 2.2. ASSESSMENT AND PLAN: 1. Anemia on presentation, likely secondary to diverticular bleed. Status post colonoscopy. 2. Left lower lobe infiltrate. This is probably related with atelectasis. He is not coughing or having symptoms of pneumonia. 3. Abdominal distention. This could be secondary to an ileus. I do not think this patient has a bowel obstruction. I am not sure if he is getting better or worse. We will continue with the bowel regimen. Docusate 200 mg p.o. at bedtime scheduled. 4. Extensive abdominal aortic aneurysm. Surgery department is following this patient. It looks like he has been declining surgical intervention. 5. B12 and folate deficiencies. Will continue replacing them. 6. Right deep vein thrombosis, femoral vein. Continue with Lovenox for now twice a day. Once this patient is more stable we can switch it to Eliquis. 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 7. So in general this patient looks more stable. He is still having abdominal distention probably secondary to ileus or constipation. I do not think he has a bowel obstruction. He has been passing gas and having bowel movements. Surgery department on board. I will continue with the same bowel regimen for now and I will transfer this patient to the floor. cc: Vlad Guzman MD
[2017-04-06] MEDS: COLACE PO SCH (21:54)
[2017-04-06] MEDS: FLOMAX PO SCH (21:55)
[2017-04-07] MEDS: DUONEB (A & A) INH SCH ×4 (03:42→21:38)
[2017-04-07] MEDS: LOVENOX SUBQ SCH (05:57)
[2017-04-07 06:30] LABS: MANUAL DIFF NEEDED? NO
[2017-04-07 06:46] LABS: BASO% 0.3 % (0.0-0.8); EOS# 0.18 X1000 (0.0-0.7); EOS% 2.6 % (0.0-10.0); HEMATOCRIT 26.9 % (42.0-52.0); HEMOGLOBIN 8.3 g/dL (14.0-18.0); IMM GRAN# 0.02 X1000 (0.0-0.04); IMM GRAN% 0.3 % (0.0-0.5); LYMPH# 1.35 X1000 (1.2-3.4); LYMPH% 19.3 % (20.5-51.1); MCH 29.5 PG (27-31); MCHC 30.9 g/dL (33-37); MCV 95.7 FL (81-99); MONO# 0.89 X1000 (0.11-0.59); MONO% 12.7 % (1.7-9.3); MPV 10.1 FL (7.4-10.4); NEUT% 64.8 % (42.2-75.2); PLT 237 X1000 (130-400); RBC 2.81 XMIL (4.7-6.1)
[2017-04-07 07:03] LABS: AGAP 11; BUN 8 mg/dL (8-22); CALCIUM 8.6 mg/dL (8.8-10.2); CHLORIDE 104 mmol/L (98-107); COSMO 279; POTASSIUM 4.1 mmol/L (3.5-5.1); SODIUM 141 mmol/L (136-145); TCO2 26 mmol/L (25-35)
[2017-04-07] MEDS: VITAMIN B-12 PO SCH (08:44)
[2017-04-07] MEDS: NORCO-5 PO PRN ×2 (08:44→15:32)
[2017-04-07] MEDS ORDERED: FLOMAX PO SCH (09:00)
[2017-04-07] MEDS: SODIUM CHLORIDE 0.9% INJ SCH (13:39)
[2017-04-07] MEDS: PROTONIX IV SCH (13:39)
--- NOTE | 2017-04-07 16:45 | PROGRESS NOTE ---
DATE: 04/07/2017 SUBJECTIVE: The patient looks well. He really wants to go home. He does not want aggressive measures at this point. He does not want surgery. He really just wants to go home. He is not complaining of shortness of breath or other. OBJECTIVE: Blood pressure is 136/74, heart rate 76, respiratory rate 18, temperature 97.6 degrees. Cardiovascular: Regular rate and rhythm. Pulmonary: Bilateral breath sounds. Clear to auscultation. GI: Soft, nontender, nondistended. Bowel sounds are positive. LABORATORY DATA: Hemoglobin and hematocrit is 8 and 26. Basic was normal. PROBLEM LIST: 1. Extensive abdominal aneurysm. He is refusing any surgical intervention. Obviously he is at bleeding risk, but we will follow. 2. Deep vein thrombosis. He is on Lovenox. He seems stable. I am going to switch him to Eliquis. 3. Anemia appears to be currently stable. No aggressive bleeding. He did have a diverticular bleed recently, but he has been switched to heparin. 4. Left lower lobe infiltrate. He is asymptomatic. DISPOSITION: I think if he tolerates his medications, he could be discharged tomorrow. He does not want any home care. I discussed short and long-term goals and he says he does not want to be aggressive with any life-sustaining measures at his age and with his comorbidities. So, plan will be hopefully to discharge tomorrow. The patient is on Coumadin, which I guess our plan will be to switch to Eliquis and if he is stable, home tomorrow. cc: Braden Goins MD
--- NOTE | 2017-04-07 17:47 | PROGRESS NOTE ---
DATE: 04/07/2017 SUBJECTIVE: The patient denies complaints today. He reports having a bowel movement today. He had a abdominal x-ray that showed possible ileus. He was been treated for constipation. He has had no further rectal bleeding. A colonoscopy was done on 04/02/2017 that showed diverticular bleeding and diverticulosis. Otherwise, normal colonoscopy. OBJECTIVE: Vital Signs: Temperature 97.6 degrees, pulse 76, respirations 18, blood pressure 136/74. General: The patient is awake and alert. No acute distress. Respiratory: Lung sounds essentially clear bilaterally. Gastrointestinal: Abdomen is soft, nontender. Positive bowel sounds. LABORATORY: Hematology: WBC 7.01, hemoglobin 8.3, hematocrit 26.9, MCV 95.7, platelets 237,000. Chemistry: Sodium 141, potassium 4.1, chloride 104, CO2 26, BUN 8, creatinine 0.7, glucose 95. ASSESSMENT AND PLAN: 1. Rectal bleeding has resolved. 2. Diverticular bleeding and diverticulosis, per colonoscopy. 3. Abdominal aneurysm. He has had surgical evaluation, but the patient, per note, does not want to proceed with surgical intervention. 4. Deep vein thrombosis. He is on Lovenox. The plan is to possibly switch him over to Eliquis instead of Coumadin on discharge. 5. Anemia is stable. He has had no further active bleeding. We will continue to follow during his hospital course. Follow up with the patient after discharge. I have discussed this case with Dr. Dawson. Dictated by JACKELYN Jon for Heriberto Dawson MD cc: JACKELYN aCt MD
[2017-04-07] MEDS: FLOMAX PO SCH (20:12)
[2017-04-07] MEDS: COLACE PO SCH (20:13)
[2017-04-08] MEDS: NORCO-5 PO PRN ×2 (00:09→11:39)
[2017-04-08] MEDS: DUONEB (A & A) INH SCH ×2 (03:20→10:00)
[2017-04-08] MEDS ORDERED: ELIQUIS PO SCH (06:00)
[2017-04-08 06:43] LABS: HEMATOCRIT 26.7 % (42.0-52.0); HEMOGLOBIN 8.4 g/dL (14.0-18.0); MCH 31.2 PG (27-31); MCHC 31.5 g/dL (33-37); MCV 99.3 FL (81-99); MPV 9.9 FL (7.4-10.4); RBC 2.69 XMIL (4.7-6.1)
[2017-04-08 06:58] LABS: AGAP 9; BUN 9 mg/dL (8-22); CALCIUM 8.2 mg/dL (8.8-10.2); CHLORIDE 105 mmol/L (98-107); COSMO 281; POTASSIUM 3.9 mmol/L (3.5-5.1); SODIUM 142 mmol/L (136-145); TCO2 28 mmol/L (25-35)
[2017-04-08 10:02] VITALS: BP 144/61
[2017-04-08] MEDS: VITAMIN B-12 PO SCH (10:28)
--- NOTE | 2017-04-08 10:56 | DISCHARGE SUMMARY ---
ADMISSION DATE: 03/30/2017 DISCHARGE DATE: ADDENDUM: The patient is seen and examined by me [id number]. Family members at the bedside, his daughter. This patient is feeling good and he is not having more gastrointestinal bleed. Gastroenterology department has been following this patient closely. OBJECTIVE: Vital signs are stable, and the hemoglobin and hematocrit has been stable for the past days. On my physical exam I did not find anything new. He is not complaining of any pain or shortness of breath. He has been using warfarin before, but now we are going to start this patient on Eliquis. I explained to him and to his daughter about the risk and benefits of taking warfarin, including but not limited to bleeding, and of course if this patient falls he can have a high risk of bleed. Like I said, this patient will be taking Eliquis from now on. We will give him 10 mg twice a day for 6 more days and then he will take 5 mg twice a day. He does have an abdominal aneurysm. Surgery department has been following this patient, but I talked to him again today and he has been refusing any kind of surgery at this point. The daughter is at the bedside and she agreed with this. He will be discharged to his assisted living. At the moment of discharge, this patient was in stable medical condition, tolerating p.o., and he has been working with physical therapy. cc: Vlad Guzman MD
--- NOTE | 2017-04-09 05:09 | DISCHARGE SUMMARY ---
ADMISSION DATE: 03/30/2017 DISCHARGE DATE: 04/08/2017 CONSULTATIONS: 1. Dr. Dawson with gastroenterology. 2. Dr. Juan Carlos Castellanos with general surgery. 3. Dr. Alan Alvarado with urology. PERTINENT PROCEDURES: 1. Abdomen and pelvis CT showed a right renal mass consistent with renal cell carcinoma, nonobstructing renal stones, large abdominal aortic aneurysm, moderate size hiatal hernia, diverticulosis. The bones are osteopenic and there is mild compression fracture to the L4 vertebra. 2. Flexible sigmoidoscopy with colonoscopy attempted for lower GI bleed by Dr. Dawson. 3. Colonoscopy that showed resolved diverticular bleed and diverticulosis performed by Dr. Dawson. 4. 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 5. Abdominal x-ray showed nonspecific moderately gas distended loops of colon. 6. Followup abdominal x-ray showed interval improvement of gaseous distended loops of bowel. DISCHARGE DIAGNOSES: 1. Extensive abdominal aneurysm. Patient is refusing surgical intervention. 2. Bilateral deep venous thrombosis. Patient to continue on Eliquis. 3. Anemia secondary to diverticular bleed. Hemoglobin and hematocrit stable, status post 4 units of packed red blood cells and 1 unit of fresh frozen plasma, hemodynamically stable. 4. Left lower lobe infiltrate that was ruled as atelectasis. The patient has no symptoms of pneumonia. Antibiotics were discontinued. 5. Abdominal distention, likely secondary to constipation with ileus, improved. 6. B12 and folate deficiencies. Continue with supplementation. 7. Large right upper pole renal mass evaluated by Dr. Alvarado who recommends a right partial nephrectomy after his gastrointestinal bleed had been treated as well as his enlarged prostate with obstructive voiding symptoms addressed after his gastrointestinal bleed had been treated and encourage increased water to help prevent the small renal stones from getting bigger. Follow up with Dr. Alvarado as an outpatient. HOSPITAL COURSE: Mr. Arriaga is an 87-year-old, male who carries a history of BPH, DVT on lifelong Coumadin therapy. Presented to the hospital with painful rectal bleeding that began the day prior to his admission. He had been having several episodes of bright red bloody stools that had filled up the toilet. Also some abdominal distention and pain. He came to the ED for evaluation with his family. His hemoglobin and hematocrit in the ED were 9 and 28. His INR was 2.5. His chemistry was unremarkable. His vital signs were stable. He was given some p.o. vitamin K and admitted to the floor, and consulted GI. Initiated on IV fluids. Checked iron studies. Did a type and screen. Trended his hemoglobin and hematocrit every 6 hours. Held his Coumadin. He does have an IVC filter in place. Checked daily INRs. He was also given a unit of FFP. A CT of the abdomen and pelvis was obtained as well. It showed a right renal mass, consistent with renal cell carcinoma, nonobstructing renal stones, large abdominal aortic aneurysm. Given these findings, they consulted general surgery. Mr. Arriaga continued to be dizzy secondary to anemia. His hemoglobin and hematocrit did drop. He continued to have rectal bleeding. His INR was partially reversed with 1 unit of FFP and vitamin K. He was transfused with 2 units of blood. Given the renal mass, they also consulted urology. However, general surgery along with urology felt that both issues needed to be addressed. However, they felt that his GI bled needed to resolve and then they would come up with a plan. He underwent his 1st flexible sigmoidoscopy with attempted colonoscopy on 04/01/2017. Digital exam showed blood in the rectal wall. However, due to solid stool, they were not able to complete his colonoscopy and they would re-prep him to do another colonoscopy and they did not find any active bleeding. On 04/02/2017, he underwent his 2nd colonoscopy where they found a resolved diverticular bleed and diverticulosis. There was no active bleeding or any recent bleed that could be treated. The patient was started on Colace, a full liquid diet and advanced as tolerated. Continue to monitor his hemoglobin and hematocrit, and recommended starting anticoagulation with Coumadin judiciously. We did repeat bilateral venous ultrasound Dopplers that showed chronic and subacute deep and superficial vein thrombosis involving bilateral lower extremities. The patient was complaining of abdominal pain and not being able have a bowel movement as well as not being able to the eat. They did a KUB that showed nonspecific moderate gas distended loops of colon. He was then given a dose of methylnaltrexone as well as an enema to help his bowels move. His narcotics were discontinued. Followup KUB showed interval improvement. The patient clinically was feeling better. He was passing gas and having bowel movements. Dr. Goins talked to the patient about his options with medications and surgery. He does not want any aggressive measures at this point. He does not want surgery. He wanted to go home. They switched him from Coumadin to Eliquis. Hemodynamically, Mr. Arriaga is stable for discharge today. VITAL SIGNS AT TIME OF DISCHARGE: Temperature is 97.3 degrees, heart rate 81, respirations 16, blood pressure 144/61, O2 94% on room air. LABORATORY DATA: Hemoglobin and hematocrit at the time of discharge were 8.4 and 26.7. DISCHARGE DIET: GI soft. DISCHARGE MEDICATIONS: As per Dr. Noble: 1. Eliquis 10 mg p.o. b.i.d. for the next 6 days and then 5 mg b.i.d. 2. TheraTears 1 each eye daily p.r.n. 3. Vitamin B12 1000 mcg p.o. daily. 4. Colace 20 mg p.o. at bedtime. 5. [place] 5/325 one each p.o. q.6 hours p.r.n. 6. Flomax 0.4 mg p.o. daily. FOLLOWUP: Mr. Arriaga is being discharged back to [facility]. Again, he has refused any type of surgical intervention. He is aware of his abdominal aortic aneurysm as well as the renal cell carcinoma that Dr. Alvarado has suggested he have a partial nephrectomy for. However, due to his multiple comorbidities, he is not wanting to take any aggressive measures. They wanted to be discharged back home. He can follow up with his primary care physician, Dr. Kael Thompson, in 7-10 days. He can return to the ED for any worsening of symptoms. Discharge time, 30 minutes. Dictated by JACKELYN Way for Vlad Guzman MD cc: MD Kael Gan MD
== END 2017-04-08 11:38 ==
LOC: ED 10:51 → 3N 15:39 → SUATTDRO 15:39 → ICU 04-01 21:08 → 3S 04-03 14:13 → 3N 04-06 17:44
PROVIDERS: ATTEND Internal Medicine

== ENCOUNTER 2018-07-23 18:44 | Inpatient (IN) ==
--- NOTE | 2018-07-23 19:27 | Diag Imaging Result Doc PS360 ---
EXAM: XRAY PELVIS W/HIP 2-3VW RT 07/23/2018 HISTORY: right hip pain TECHNIQUE: Right hip three views with AP pelvis COMMENT: There is a subcapital fracture of the right femur. There is no evidence of dislocation. 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 IMPRESSION: Right femoral neck fracture. Electronically signed by Yanick Wallace 07/23/2018 7:25 PM
[2018-07-23] MEDS ORDERED: MORPHINE IV ONE (19:53)
[2018-07-23] MEDS ORDERED: ZOFRAN IV ONE (19:53)
[2018-07-23 20:16] LABS: BASO# 0.02 X1000 (0.0-0.2); BASO% 0.2 % (0.0-0.8); EOS# 0.12 X1000 (0.0-0.7); HEMOGLOBIN 9.2 g/dL (14.0-18.0); IMM GRAN# 0.07 X1000 (0.0-0.04); IMM GRAN% 0.6 % (0.0-0.5); LYMPH# 1.87 X1000 (1.2-3.4); LYMPH% 16.3 % (20.5-51.1); MCH 24.6 PG (27-31); MCHC 29.7 g/dL (33-37); MCV 82.9 FL (81-99); MONO% 10.4 % (1.7-9.3); MPV 9.9 FL (7.4-10.4); NEUT# 8.22 X1000 (1.4-6.5); NEUT% 71.5 % (42.2-75.2); PLT 318 X1000 (130-400); RBC 3.74 XMIL (4.7-6.1); RDW 21.4 % (11.5-14.5)
[2018-07-23 20:20] LABS: AGAP 12; ALBUMIN 2.8 g/dL (3.5-5.0); ALKALINE PHOSPHATASE 115 U/L (32-122); BUN 18 mg/dL (8-22); CALCIUM 8.4 mg/dL (8.8-10.2); CHLORIDE 98 mmol/L (98-107); COSMO 274; CREATININE 0.9 mg/dL (0.7-1.2); ESTIMATED GFR > 60; GLUCOSE 127 mg/dL (70-104); GOT 21 U/L (10-34); GPT 13 U/L (10-44); SODIUM 135 mmol/L (136-145); TCO2 25 mmol/L (25-35); TOTAL PROTEIN 6.6 g/dL (6.3-8.3)
[2018-07-23 20:57] LABS: BILIRUBIN URINE NEGATIVE (NEGATIVE); BLOOD URINE 2+ (NEGATIVE); CLARITY CLEAR (CLEAR); COLOR YELLOW; GLUCOSE URINE NEGATIVE (NEGATIVE); KETONE URINE NEGATIVE (NEGATIVE); LEUKOCYTES URINE NEGATIVE (NEGATIVE); NITRITE URINE NEGATIVE (NEGATIVE); PROTEIN URINE TRACE mg/dL (NEGATIVE); UROBILINOGEN URINE NORMAL
[2018-07-23 21:01] LABS: URINE SOURCE CATH
[2018-07-23 21:07] LABS: URINE BACTERIA 2+ /HFP; URINE EPITHELIAL CELLS <10 /HPF (<10); URINE WBC <10 /HPF (<10)
--- NOTE | 2018-07-23 21:45 | Diag Imaging Result Doc PS360 ---
EXAM: CT HEAD/C-SPINE W/O CONTRAST 07/23/2018 HISTORY: fall TECHNIQUE: This exam was performed using automated exposure control, adjustment of mA or kV according to patient size, and/or use of iterative reconstruction technique. COMMENT: There is mild cerebral atrophy. There is periventricular white matter lucency bilaterally consistent with chronic microvascular disease. There is no evidence of mass effect, bleed, abnormal extra-axial fluid collection, or hydrocephalus. There are no previous studies available for comparison. The calvarium is intact. There is a mucous retention cyst in the right maxillary sinus. There is deformity of the right lamina papyracea which appears old. There has apparently been banding of the right globe. Cervical spine: There is no evidence of fracture or subluxation. No prevertebral soft tissue swelling present. 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 There is anterior osteophyte formation at C4-5 and ankylosis with bridging osteophyte at C5-6 and to some extent at C6-7. There is posterior osteophyte formation at C6-7. The facets are aligned but there is some facet arthropathy present on the left at the C4-5 and C5-6 level particularly on the right side at C3-4 and C4-5. The right C2-3 facet is fused. IMPRESSION: No evidence of acute intracranial or cervical spine disease. Chronic changes as described. Electronically signed by Yanick Wallace 07/23/2018 9:42 PM
[2018-07-23] MEDS ORDERED: MORPHINE IV PRN (21:52)
--- NOTE | 2018-07-23 21:53 | PROVIDER DOCUMENTATION ---
This chart was entered by Asia Estrada Scribe, acting as scribe for Janiya Best CRNP. HPI-General Adult - General Chief Complaint: Fall Stated Complaint: FALL Time Seen by Provider: 07/23/18 19:00 Source: patient Allergies/Adverse Reactions: Patient Allergies Allergy/AdvReac Type Severity Reaction Status Date / Time No Known Allergies Allergy Verified 07/23/18 18:49 Home Medications: Home Medication List Medication Instructions Recorded Confirmed Last Taken Type Carboxymethylcellulose Sodium 1 each OP DAILY PRN PRN 03/30/17 03/30/17 Unknown History [Thera Tears] Tamsulosin [Flomax] 0.4 mg PO DAILY 03/30/17 03/30/17 03/29/17 08:00 History 0.4 MG Apixaban [Eliquis] 10 mg PO BID@0600,1800 #90 tablet 04/08/17 Unknown Rx Cyanocobalamin [Vitamin B-12] 1,000 microgm PO DAILY #60 tablet 04/08/17 Unknown Rx Docusate Sodium [Colace] 200 mg PO QHS capsule 04/08/17 Unknown Rx Hydrocodone Bit/Acetaminophen 1 each PO Q6H PRN PRN #15 tablet 04/08/17 Unknown Rx [Hydrocodon-Acetaminophen 5-325] Bisacodyl 10 mg RC PRN 07/23/18 Unknown History Lactulose 10 gm PO 07/23/18 Unknown History Morphine E.r. [Ms Contin] 60 mg PO Q12H PRN 07/23/18 07/23/18 Unknown History Naproxen 250 mg PO PRN PRN 07/23/18 07/23/18 Unknown History Nystatin 100,000 units TOP DAILY 07/23/18 07/23/18 Unknown History Promethazine [Phenergan] 25 mg PO PRN PRN 07/23/18 07/23/18 Unknown History Sennosides/Docusate Sodium [Senna 50 mg PO PRN PRN 07/23/18 07/23/18 Unknown History Laxative Tablet] Tamsulosin [Flomax] 0.4 mg PO DAILY 07/23/18 07/23/18 Unknown History Tramadol E.r. [Ultram ER] 100 mg PO PRN PRN 07/23/18 07/23/18 Unknown History - History of Present Illness -Gen Adult Nature of Presenting Problems: Pt is 88/m presenting to ED via EMS. 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 He complains R hip pain. Pt is poor historian, is resident of assisted living community. Location of Pain/Injury: reports: lower body (R hip) Quality of Pain: reports: aching Severity: reports: mild Onset/Duration: reports: just prior to arrival Timing: reports: still present Context/Activities at Onset: reports: light activity (fall) Modifying Factors: improves with: nothing Associated Symptoms: denies: back/neck pain, chest pain, dizziness Similar Symptoms Previously?: No Recently seen or treated by another doctor?: No Review of Systems - Adult - REVIEW OF SYSTEMS - ADULT Constitutional: reports: no symptoms reported. denies: chills, fever Eyes: reports: no symptoms reported Ears, Nose, Mouth & Throat: reports: no symptoms reported Cardiovascular: reports: no symptoms reported. denies: chest pain, edema Respiratory: reports: no symptoms reported. denies: cough, shortness of breath Gastrointestinal: reports: no symptoms reported. denies: abdominal pain, nausea , vomiting Genitourinary: reports: no symptoms reported Musculoskeletal: reports: no symptoms reported. denies: back pain Integumentary: reports: no symptoms reported Neurological: denies: dizziness/vertigo, headache/migraines Psychiatric: reports: no symptoms reported Endocrine: reports: no symptoms reported Hematologic/Lymphatic: reports: no symptoms reported Allergic/Immunologic: reports: no symptoms reported All Other Systems: Reviewed and Negative Past History - Adult - PAST MEDICAL HISTORY-ADULT Review of Records: reports: Old Records Reviewed, Nursing Assessment Review, Medications Reviewed, Social history reviewed & non-contributory. Major Childhood Illnesses: reports: denies history Cardiovascular: reports: denies history Respiratory: reports: denies history Gastrointestinal: reports: denies history Obstetrical/Gynecological: reports: denies history Genitourinary: reports: denies history Musculoskeletal: reports: denies history Neurological: reports: denies history Endocrine/Immune: reports: denies history Other Conditions: reports: denies history - IMMUNIZATION STATUS Childhood Immunizations: See Nurse Assessment Flu Vaccine: See Nurse Assessment - FAMILY HISTORY Family History: reviewed, not pertinent - SOCIAL HISTORY Smoking: quit greater than 1 year Substance Use: none/never Alcohol Use Frequency: never Living Situation: care facility (assisted living) Physical Exam-General - PHYSICAL EXAM-ADULT Initial Vital Signs Reviewed: Yes - CONSTITUTIONAL General Appearance: appears well, alert, no apparent distress, other (pt is poor historian) - EYES Eyes: PERRL/EOMI - HEAD, EARS, NOSE, MOUTH & THROAT HENMT: normal ENT inspection, TMs normal, other (dry mucous membrane) - NECK Neck: non-tender, full range of motion, supple - RESPIRATORY Respiratory: chest non-tender, lungs clear, normal breath sounds - CARDIOVASCULAR Cardiovascular: regular rate, rhythm - GASTROINTESTINAL (ABDOMEN) Abdominal Exam: normal bowel sounds, non tender, soft - LYMPHATIC Lymphatic: no adenopathy - MUSCULOSKELETAL Back Exam: normal inspection, no CVA tenderness, no vertebral tenderness. negative: CVA tenderness Extremity: normal range of motion, no calf tenderness, normal capillary refill, tenderness (right lateral hip), other (No shortening or rotation to R hip upon examination). negative: deformity, erythema, pulse deficit, swelling Peripheral Pulses: dorsalis-pedis (R): 2+, dorsalis-pedis (L): 2+ - SKIN Integumentary: normal color, normal turgor, warm/dry - NEUROLOGIC Neurologic: grossly normal - PSYCHIATRIC Psych/Mental Status: normal mood/affect, normal thought content, normal thought process, oriented x 3 Progress - PLAN OF CARE/RESULTS Progress/Plan/Lab Results: Vital Signs - 8 hr 07/23/18 18:44 Temperature 99.6 F Pulse Rate 84 Respiratory Rate 20 Blood Pressure 146/77 O2 Sat by Pulse Oximetry 95 Orders Category Date Time Status Saline Loc NOW Care 07/23/18 18:51 Active HIP 1 VIEW RIGHT [RAD] Stat Exams 07/23/18 18:52 Ordered Result Diagrams: 07/23/18 19:00 07/23/18 19:00 - REASSESSMENT Reassessment #1 Time Reassessed: 19:35 (Reviewed results with pt and need for admission) - XRAY 1 XRAY Study: Pelvis, Hip Impression: See EMR Report ( There is a subcapital fracture of the right femur. There is no evidence of dislocation. 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 IMPRESSION: Right femoral neck fracture. Electronically signed by Yanick Wallace 07/23/2018 7:25 PM) - CT/MRI 1 CT Study: Cervical Spine, Head Impression: See EMR Report (There is mild cerebral atrophy. There is periventricular white matter lucency bilaterally consistent with chronic microvascular disease. There is no evidence of mass effect, bleed, abnormal extra-axial fluid collection, or hydrocephalus. There are no previous studies available for comparison. The calvarium is intact. There is a mucous retention cyst in the right maxillary sinus. There is deformity of the right lamina papyracea which appears old. There has apparently been banding of the right globe. Cervical spine: There is no evidence of fracture or subluxation. No prevertebral soft tissue swelling present. 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 There is anterior osteophyte formation at C4-5 and ankylosis with bridging osteophyte at C5-6 and to some extent at C6-7. There is posterior osteophyte formation at C6-7. The facets are aligned but there is some facet arthropathy present on the left at the C4-5 and C5-6 level particularly on the right side at C3-4 and C4-5. The right C2-3 facet is fused. IMPRESSION: No evidence of acute intracranial or cervical spine disease. Chronic changes as described. Electronically signed by Yanick Wallace 07/23/2018 9:42 PM) - CONSULTS/PCP/HOSPITALIST Notification #1 *Consult/PCP/Hospitalist*: Dr Hall oncall ortho Time Discussed: 20:39 (femoral neck fx) Reason/Comments: NPO p midnight Consult Disposition: Admit #2 Consult: Hospitalist, Dr Noble Time Discussed: 20:45 (call hospitalist at [facility]) #3 Consult: Dr. Banda hospitalist Time Discussed: 21:00 Reason/Comments: Requests head CT then admit to [facility] Consult Disposition: Admit Departure - Departure Date of Disposition Decision: 07/23/18 Time of Disposition Decision: 20:40 DIAGNOSIS: Hip fracture Qualifiers: Encounter type: initial encounter Fracture type: closed Laterality: right Qualified Code(s): S72.001A - Fracture of unspecified part of neck of right femur, initial encounter for closed fracture Disposition: ADMITTED INPATIENT 09 Certified Medical Emergency: Emergent Condition: Fair Referrals and Follow-Ups: None,PCP [Primary Care Provider] - - Critical Care Note This patient required my direct & personal management of CC.: No Attestation - Physician/ JAVED Attestation Patient care was provided by Advanced Practice Provider:: Yes Advanced Practice Provider:: Janiya Best Advanced Practice Provider documentation review:: The Mid-level provider documentation, treatment plan and medical decision making was reviewed by the physician who agrees with all treatment and medical decision making by the MLP. The physician spent face to face time with patient:: No Advanced Practice Provider documentation review:: Supervising physician onsite and consulted in the evaluation and care of this patient. The physician did not have a face to face encounter with the patient. This chart was documented by the indicated scribe, (Asia Estrada, Wallace) and accurately reflects the services I performed and decisions made by me, Janiya Best, JACKELYN, as attested by the provider's signature.
[2018-07-23] MEDS ORDERED: TYLENOL PO PRN (23:34)
[2018-07-23] MEDS ORDERED: ZOFRAN IV PRN (23:34)
[2018-07-23] MEDS ORDERED: TEARISOL OPH SOLUTION OPH PRN (23:34)
[2018-07-24] MEDS: MORPHINE IV PRN ×4 (00:21→21:43)
[2018-07-24] MEDS: NS 1,000 ML IV SCH ×2 (00:21→16:27)
[2018-07-24] MEDS ORDERED: HALDOL PO PRN (03:46)
[2018-07-24] MEDS: ATROPINE 1 % OPHTH SOLN RIGHT EYE SCH ×5 (05:23→21:37)
--- NOTE | 2018-07-24 05:56 | HISTORY AND PHYSICAL ---
CHIEF COMPLAINT: Fall with right hip pain. HISTORY OF PRESENT ILLNESS: This is a chronically ill-appearing 88-year-old male who is on hospice and is a DNR level 1, per the at the bedside. 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 He has had GI bleed with acute blood loss anemia as well as implantation of an IVC filter. At any rate, he lives at a skilled nursing home with his . He urinates frequently. He got up to go to the restroom and fell hitting on his left hip. He did not have loss of consciousness. Did not hit his head. However, CT of his brain was done to rule out acute intracranial hemorrhage. This was negative. X -ray did show a right femoral neck fracture. He will be admitted to the medical floor at [facility] with surgical consultation. PAST MEDICAL HISTORY: See HPI. PREVIOUS SURGICAL HISTORY: Lithotripsy and IVC filter placement. SOCIAL HISTORY: Occasionally does use chewing tobacco fairly infrequently. He smoked for several years but has also been quit for many years, per the . He did occasionally drink beer, but now only has alcohol at [facility]. Denies any illicit drug use. He has been for I believe the said 60-plus years. FAMILY HISTORY: This could not be obtained. The patient and were both poor historians in this manner. They were not able to give any family history. ALLERGIES: No known drug allergies. HOME MEDICATIONS: A list of home medications has not been reconciled. An order was placed for Nursing to reconcile home medications in the computer. These will be restarted when appropriate. REVIEW OF SYSTEMS: Fourteen point review of systems conducted with the patient. He was having left hip pain. He denied any other complaint. PHYSICAL EXAMINATION: VITAL SIGNS: Temperature 99.6, "pulse 20," blood pressure 169/81, oxygen saturation 96% on room air. GENERAL: Chronically ill-appearing 88-year-old male lying in the medical floor bed, lethargic, oriented to person and place, disoriented to time and situation, in no acute distress. at bedside very attentive. HEENT: Head is atraumatic, normocephalic. Pupils equal, round, reactive to light. Extraocular eye movement is intact. Sclerae are anicteric. Conjunctiva is mildly pale. Oral mucosa is moist. NECK: Supple. No JVD. No thyromegaly. Trachea is midline. No cervical lymphadenopathy. CARDIOVASCULAR: 2/6 systolic ejection murmur noted. S1, S2 appreciated. No gallops. No rubs. LUNGS: Clear to auscultation bilaterally. No rhonchi, wheezes, rales. Symmetric rise and fall with respirations. ABDOMEN: Soft, nondistended, nontender. Bowel sounds present all 4 quadrants, hypoactive. No pulsatile mass. No organomegaly. EXTREMITIES: No clubbing, cyanosis, or edema. Chronic hyperpigmentation to bilateral lower extremities related to chronic venostasis. One-plus pedal pulses noted bilaterally. MUSCULOSKELETAL: Patient has pain and decreased range of motion in right lower extremity with movement. Normal range of motion in 3 other extremities. NEUROLOGICAL: Oriented to person and place. Disoriented to time and situation. However, he has received narcotic pain medication. He is mildly lethargic. No focal deficits noted. Otherwise a nonfocal examination. DIAGNOSTIC DATA: CT of the head showed no acute intracranial process. X-ray of the pelvis and hip showed a right femoral neck fracture. LABORATORY DATA: WBC 11.50. Hemoglobin 9.2. Hematocrit 31.0. Platelet count 318. Sodium 135. Potassium 4. Chloride 98. Carbon dioxide 25. BUN 18. Creatinine 0.9. Glucose 127. Urine unremarkable. ASSESSMENT AND PLAN: 1. Right hip fracture. Consult Dr. Hall, who is technical solutions consultant. Morphine 2 mg IV q.2 hours as needed for pain. 2. Chronic deep venous thromboses with chronic treatment of Eliquis, I believe. Home medications have not been reconciled. I know the patient was on Coumadin but then had a GI bleed. We will hold these medications at this time while Surgery evaluates for possible surgical intervention. 3. Anemia. I believe this is chronic. However, we will order iron indices. 4. History of abdominal aortic aneurysm. This has been monitored outpatient for growth. Aware. 5. Code status: Patient is a hospice patient and is a DNR level 1 which was discussed with the . They want no heroic measures taken if the patient were to spontaneously lose his pulse or have spontaneous loss of respirations. This order has been placed in the computer. Further recommendations per patient clinical course. Dictated by JACKELYN Freeman for Pennie Banda MD cc: JACKELYN Freeman MD Jay Pohl, MD Independent exam of this patient showed bilateral pigmentation of his legs which is consistent with chronic venous insufficiency and there is also shortening and external rotation of RLE without any vascular comprise. Pt is at high risk for DVT post op and immediate DVT prophylaxsis at even full dose maybe considered if bleeding risk is low. Optimal bowel regimen against constipation needs to be addressed. Pt is being on Eliquis will hold up Sx for 2 days to decrease risk of post bleeding. MTDD
[2018-07-24 06:12] LABS: BASO# 0.01 X1000 (0.0-0.2); BASO% 0.1 % (0.0-0.8); EOS# 0.19 X1000 (0.0-0.7); EOS% 1.5 % (0.0-10.0); HEMATOCRIT 32.1 % (42.0-52.0); HEMOGLOBIN 9.8 g/dL (14.0-18.0); IMM GRAN# 0.06 X1000 (0.0-0.04); IMM GRAN% 0.5 % (0.0-0.5); LYMPH# 1.69 X1000 (1.2-3.4); MCH 25.1 PG (27-31); MCHC 30.5 g/dL (33-37); MCV 82.1 FL (81-99); MONO# 1.07 X1000 (0.11-0.59); MONO% 8.2 % (1.7-9.3); MPV 9.3 FL (7.4-10.4); NEUT# 10.03 X1000 (1.4-6.5); NEUT% 76.7 % (42.2-75.2); PLT 263 X1000 (130-400); RBC 3.91 XMIL (4.7-6.1); RDW 21.1 % (11.5-14.5); WBC 13.05 X1000 (4.8-10.8)
[2018-07-24 06:35] LABS: INR 1.35; PROTIME 17.7 Seconds (11.0-16.0)
[2018-07-24 06:49] LABS: AGAP 11; BUN 15 mg/dL (8-22); CALCIUM 8.3 mg/dL (8.8-10.2); CHLORIDE 97 mmol/L (98-107); COSMO 270; CREATININE 0.8 mg/dL (0.7-1.2); ESTIMATED GFR > 60; GLUCOSE 124 mg/dL (70-104); POTASSIUM 3.6 mmol/L (3.5-5.1); SODIUM 134 mmol/L (136-145); TCO2 26 mmol/L (25-35)
[2018-07-24] MEDS: FLOMAX PO SCH (07:06)
--- NOTE | 2018-07-24 07:48 | EKG Report ---
Test Performed on : 07/24/2018 06:42:17 AM Test Reason : frequent PVC's Blood Pressure : / mmHG Vent. Rate : 099 BPM Atrial Rate : 099 BPM P-R Int : 164 ms QRS Dur : 082 ms QT Int : 336 ms P-R-T Axes : 014 -08 042 degrees QTc Int : 431 ms Sinus rhythm. with frequent premature ventricular complexes. and premature atrial complexes. Nonspecific ST abnormality Abnormal ECG No previous ECGs available Confirmed by Dona ARTEAGA, Long Travis ([id number]) on 07/25/2018 10:41:05 AM
--- NOTE | 2018-07-24 10:13 | CONSULTATION ---
DATE OF CONSULTATION: 07/24/2018 HISTORY OF PRESENT ILLNESS: Mr. Arriaga is an 88-year-old male, who lives in an assisted living facility, fell yesterday. His says that she had gone to get some food and then when she came back he was down on the floor. He has complained of pain on his right hip. He was taken to the emergency department where they did x-rays and saw a right hip fracture. He was admitted per the hospitalist service. PAST MEDICAL HISTORY: He is a DNR level 1 and has hospice care. Has history of aortic aneurysm and has been on Xarelto. He has had a recent GI bleed with acute blood loss anemia, and had IVC filter placed. PAST SURGICAL HISTORY: As above. Lithotripsy. SOCIAL HISTORY: He lives in an assisted living home. He denies any alcohol or tobacco use at this point. ALLERGIES: No known drug allergies. HOME MEDICATIONS: Per the home medication list. REVIEW OF SYSTEMS: Positive for this right hip pain. All other systems are essentially negative. PHYSICAL EXAMINATION: General: Elderly appearing male, in no acute distress. Head and Neck: Normocephalic, atraumatic. Respirations: Nonlabored breathing. Cardiovascular: Regular pulse. Abdomen: Nondistended. Extremities: Right lower extremity exam, he has some tenderness to palpation at the hip. He has good dorsiflexion and plantar flexion of the toes and the ankle. He has good sensation to light touch to the foot and 2+ DP pulse. He does have some blackish discoloration to the distal leg. His says it has been like that for a while now. RADIOGRAPHS: Several views of the right hip were reviewed which shows a valgus impacted femoral neck fracture. ASSESSMENT: Right femoral neck fracture. PLAN: I discussed with Mr. Arriaga and his about surgical intervention. I would recommend percutaneous pinning of this hip. I went over with him the procedure, risks, benefits, potential complications. Risks include, but are not limited to infection, wound healing problems, damage to nerves, arteries, veins, numbness. Malunion, nonunion, hardware related issues, continued pain, DVT, and anesthesia related risks. After discussing these with the patient and his , they expressed understanding and wished to proceed. We will try to get this scheduled for around noon today. He will be n.p.o. until then. cc: Live Hall MD
[2018-07-24] MEDS ORDERED: DIPRIVAN 1% ONE (11:53)
[2018-07-24] MEDS ORDERED: KEFZOL 1 GM/D5W 1 GM/50 ML IVPB ONE (11:59)
[2018-07-24] MEDS ORDERED: FENTANYL ONE ×2 (12:22→12:30)
[2018-07-24] MEDS ORDERED: XYLOCAINE-MPF 2% ONE (12:30)
[2018-07-24] MEDS ORDERED: SALINE LOCK IV FLUID XX ONE (12:52)
--- NOTE | 2018-07-24 14:46 | PROGRESS NOTE ---
DATE: 07/24/2018 SUBJECTIVE: The patient is just back from surgery. He is sleepy. He does not look to be in pain. OBJECTIVE: Vital Signs: Temperature 97.6, heart rate 76, respiratory rate 20, blood pressure 148/81. O2 sat is 95% on 4 L nasal cannula. General: This is a chronically ill -looking, 88-year- old male lying in bed in no acute distress. Cardiovascular: S1, S2 heard. No murmurs, gallops, or rubs. Regular rate and rhythm. Respiratory: Clear bilaterally to auscultation. No work of breathing or using accessory muscles. Abdomen: Soft, nontender to palpation. Bowel sounds present. No organomegaly. Extremities: No clubbing, cyanosis or edema. There are signs of chronic venous insufficiency. There is also a dressing covering the right hip. Neurologic: Patient is lethargic. He has been transferred from PACU a few minutes ago. LABORATORY DATA: Reviewed. ASSESSMENT AND PLAN: 1. Right hip fracture, status post percutaneous pinning of the hip. Procedure performed by Dr. Hall. Will follow recommendation. 2. Chronic deep venous thrombosis. Patient is on treatment with Eliquis. At this point, we will continue with the same management. 3. Anemia of chronic disease, stable. We will continue to monitor CBC daily. 4.Code status. The patient is a hospice patient on DNR LEVEL 1. cc: Jose Manuel Guerra MD [facility]
--- NOTE | 2018-07-24 19:09 | OPERATIVE NOTE ---
PROCEDURE DATE: 07/24/2018 PREOPERATIVE DIAGNOSIS: Right impacted femoral neck fracture. POSTOPERATIVE DIAGNOSIS: Right impacted femoral neck fracture. PROCEDURE: Right closed reduction percutaneous pinning hip. SURGEON: Live Hall MD. SEED TRUCKER: None. ANESTHESIA: General with LMA. BLOOD LOSS: About 25 mL. IMPLANTS: Synthes 7.3 cannulated screws x3. DISPOSITION: To PACU, hemodynamically stable. INDICATION FOR PROCEDURE: Mr. Arriaga is an 88-year-old male who unfortunately fell at his assisted living place, and he presented to the emergency department with hip pain. He was diagnosed with a right femoral impacted neck fracture. I discussed with him and his family about operative intervention. He expressed understanding and wished to proceed. PROCEDURE: Mr. Arriaga was identified in the preop holding area. The right hip was marked as the correct surgical site. He was then wheeled to the operating room and placed supine on the operating table. All bony prominences were well padded. He was induced under general anesthesia. LMA was placed. The right lower extremity was then prepped with chlorhexidine, gluconate scrub, and then ChloraPrep and draped in the normal sterile fashion. Surgical pause was performed. We identified the correct patient, the correct side, and the correct procedure. Preop antibiotics were given. Fluoroscopic imaging was used throughout. Our initial fluoroscopic imaging showed that we had still a good reduction on both AP and lateral views. I then made a small incision over the lateral aspect of the hip. Dissection was carried down through the deep tissue. I got my guidewire in. It was right at the level of the lesser trochanter. I got it into the inferior aspect of the head, and then I put 2 more guidewires in as an inverted triangle. Fluoroscopic imaging showed that all our guidewires were in good position. We measured those, drilled, and then put screws in, and then took the guidewires out. Final images were taken which showed that we had good reduction still and good position of all our hardware. I then closed that deep layer with 0 Vicryl, 3-0 Vicryl for the subcutaneous, and brad on the skin. An island dressing was applied. He was then awoken from general anesthesia, moved to his own bed, and taken to the PACU in stable condition. Postoperatively, he will be touchdown weightbearing, right lower extremity. He will start working with Physical Therapy tomorrow, and then Structural Designer will be involved for discharge planning. cc: Live Hall MD
[2018-07-24] MEDS: KEFZOL 1 GM/D5W 1 GM/50 ML IVPB IV SCH (21:36)
[2018-07-24] MEDS: PERIDEX MT SCH (21:38)
[2018-07-25] MEDS: ATROPINE 1 % OPHTH SOLN RIGHT EYE SCH ×5 (05:10→19:48)
[2018-07-25] MEDS: KEFZOL 1 GM/D5W 1 GM/50 ML IVPB IV SCH ×2 (05:10→12:59)
[2018-07-25] MEDS: OXY IR PO PRN ×4 (05:21→19:48)
[2018-07-25] MEDS: NS 1,000 ML IV SCH ×2 (05:21→19:49)
[2018-07-25 05:51] LABS: HEMATOCRIT 31.2 % (42.0-52.0); HEMOGLOBIN 9.2 g/dL (14.0-18.0)
[2018-07-25 06:11] LABS: AGAP 13; BUN 18 mg/dL (8-22); CHLORIDE 100 mmol/L (98-107); COSMO 273; CREATININE 0.9 mg/dL (0.7-1.2); ESTIMATED GFR > 60; GLUCOSE 88 mg/dL (70-104); IRON SATURATION 8 %; POTASSIUM 3.9 mmol/L (3.5-5.1); SODIUM 136 mmol/L (136-145); TCO2 23 mmol/L (25-35); TIBC 240 ug/dL; TOTAL IRON 18 ug/dL (53-167); UNBOUND IRON 222 ug/dL (112-346)
[2018-07-25 06:24] LABS: FERRITIN 170 ng/mL (30-400)
[2018-07-25] MEDS: VITAMIN B-12 PO SCH ×2 (07:07→08:25)
[2018-07-25] MEDS: FLOMAX PO SCH (08:25)
[2018-07-25] MEDS: FERROUS SULFATE PO SCH (08:25)
[2018-07-25] MEDS: PERIDEX MT SCH ×3 (08:27→20:15)
[2018-07-25] MEDS ORDERED: BLISTEX MEDICATED BERRY LIP BALM TOP PRN (08:33)
[2018-07-25] MEDS: MORPHINE IV PRN ×2 (10:44→22:22)
--- NOTE | 2018-07-25 14:11 | PROGRESS NOTE ---
DATE: 07/25/2018 SUBJECTIVE: Mr. Arriaga is seen today status post percutaneous pinning of the right hip fracture. OBJECTIVE: His incision is clean and dry. There is no signs of immediate complication and no signs of infection or DVT. He can be mobilized touchdown weightbearing on the right hip. Vital signs and blood count are stable at the present time. We will be available to check him again tomorrow. However, he can be transferred to rehab center or a home with home therapy if there is proper assistance at any point. He will need to follow up with us in roughly 10 to 14 days for staple removal and repeat x-rays of the hip. cc: Urban Figueredo MD
--- NOTE | 2018-07-25 16:19 | PROGRESS NOTE ---
DATE: 07/25/2018 SUBJECTIVE: The patient reports feeling fine. No pain when he is resting in bed. No other complaints noted also by the family who is at bedside. OBJECTIVE: Vital Signs: Temperature 97.8 degrees, heart rate 91, respiratory rate 12, blood pressure 124/59, O2 saturation 95% 2 L nasal cannula. General exam: This is a chronically ill- looking, 88-year-old male, lying in bed in no acute distress. Cardiovascular exam: S1, S2 heard. No murmurs, gallops, or rubs. Regular rate and rhythm. Respiratory exam: Clear bilaterally to auscultation. No work of breathing or using accessory muscles. Abdomen: Soft, nontender to palpation. Bowel sounds present. No organomegaly. Extremities: No clubbing, cyanosis, or edema. Peripheral pulses present in both legs. Signs of chronic venous insufficiency. Dressing also covering the right hip. Neurological exam: Patient is awake, very hard of hearing. Moves the upper extremities and the left lower extremity. Now, they want to move completely the right lower extremity because of the pain. LABORATORY DATA: Reviewed. ASSESSMENT AND PLAN: 1. Right hip fracture status post percutaneous pinning of the hip. Orthopedic following. We will follow recommendations. Pain is under control. 2. Chronic deep vein thrombosis. The patient is on Eliquis. Will continue with the same management. 3. Anemia of chronic disease. Stable. We are monitoring complete blood count daily. We will continue with the same plan. 4. Code status. Do not resuscitate level 1. 5. Disposition: Family expressed desire to send this patient to rehab facility. I think it is reasonable. So, social media marketing analyst and correctional counselor/case manager will meet with the family and decide what facility they would like to go. cc: Jose Manuel Guerra MD
[2018-07-25] MEDS: ELIQUIS PO SCH (22:22)
[2018-07-26] MEDS: ATROPINE 1 % OPHTH SOLN RIGHT EYE SCH ×6 (00:42→22:19)
[2018-07-26] MEDS: MORPHINE IV PRN ×2 (01:55→10:51)
[2018-07-26] MEDS: OXY IR PO PRN ×2 (04:24→08:24)
[2018-07-26 06:23] LABS: HEMATOCRIT 27.2 % (42.0-52.0)
[2018-07-26] MEDS: NS 1,000 ML IV SCH ×2 (07:19→18:39)
[2018-07-26] MEDS: ELIQUIS PO SCH ×2 (08:26→22:18)
[2018-07-26] MEDS: FERROUS SULFATE PO SCH (08:27)
[2018-07-26] MEDS: VITAMIN B-12 PO SCH (08:28)
[2018-07-26] MEDS: FLOMAX PO SCH (08:28)
[2018-07-26] MEDS: PERIDEX MT SCH ×2 (08:30→22:19)
--- NOTE | 2018-07-26 13:11 | PROGRESS NOTE ---
DATE: 07/26/2018 SUBJECTIVE: The patient reports he is still complaining of pain whenever he moves. No other complaints. OBJECTIVE: Vital Signs: Temperature 98.6 degrees, heart rate 78, respiratory rate 20, blood pressure 131/82, and O2 saturation 97% on 2 L nasal cannula General: This is a chronically ill- looking, 88-year-old male lying in bed in no acute distress. Cardiovascular: S1, S2 heard. No murmurs, gallops, or rubs. Regular rate and rhythm. Respiratory: Clear bilaterally to auscultation. No work of breathing or using accessory muscles. Abdomen: Soft. Nontender to palpation. Bowel sounds present. No organomegaly. Extremities: No clubbing, cyanosis, or edema. Dressing covering the right hip. Neurological: Patient is awake, very hard of hearing but moves all four extremities. LABORATORY DATA: Hemoglobin 8.0 and hematocrit 23.2. ASSESSMENT AND PLAN: 1. Right hip fracture status post percutaneous pinning of the hip. Dr. Figueredo from Orthopedics following this patient. From his standpoint, he mentioned the patient can be discharged and will need to follow up in a couple of weeks. 2. Chronic DVT. The patient is on Eliquis. We will adjust the doses to 2.5 mg p.o. b.i.d. considering age and comorbidities. 3. Anemia of chronic disease, stable. It has dropped a little bit because of the surgery. I will continue to monitor. 4. Code status. Do not resuscitate level 1. 5. Disposition. Family wants him to be sent to rehab facility. We will check with social media director on Friday. We will go from there. cc: Jose Manuel Guerra MD
[2018-07-26] MEDS: PERCOCET-10 PO SCH ×2 (13:42→22:18)
[2018-07-26] MEDS: DILAUDID IV PRN (18:39)
[2018-07-27] MEDS: ATROPINE 1 % OPHTH SOLN RIGHT EYE SCH ×6 (02:20→22:00)
[2018-07-27] MEDS: PERCOCET-10 PO SCH ×4 (03:54→21:58)
[2018-07-27 06:54] LABS: HEMATOCRIT 26.8 % (42.0-52.0); HEMOGLOBIN 7.7 g/dL (14.0-18.0)
[2018-07-27] MEDS: PERIDEX MT SCH ×2 (09:48→21:59)
[2018-07-27] MEDS: NS 1,000 ML IV SCH (09:48)
[2018-07-27] MEDS: FLOMAX PO SCH (09:49)
[2018-07-27] MEDS: FERROUS SULFATE PO SCH (09:49)
[2018-07-27] MEDS: ELIQUIS PO SCH ×2 (09:49→21:58)
[2018-07-27] MEDS: VITAMIN B-12 PO SCH (09:49)
[2018-07-27] MEDS: DILAUDID IV PRN (11:17)
--- NOTE | 2018-07-27 15:10 | PROGRESS NOTE ---
DATE: 07/27/2018 SUBJECTIVE: Patient reports pain is better controlled. He sitting in the chair now. OBJECTIVE: Vital Signs: Temperature 98.6, heart rate 90, respiratory rate 12, blood pressure 135/76, O2 sat 94% 2 L nasal cannula. General: This is a chronically ill- looking 88-year-old male lying in bed in no acute distress. Cardiovascular: S1, S2 heard. No murmurs, gallops or rubs. Regular rate and rhythm. Respiratory: Clear bilaterally to auscultation. No work of breathing or using accessory muscles. Abdomen: Soft, nontender to palpation. Bowel sounds present. No organomegaly. Extremities: No clubbing, cyanosis or edema. Dressing covering the right hip. Neurologic: Patient awake. Very hard of hearing, but moves 4 extremities. LABORATORY DATA: Hemoglobin 7.7. ASSESSMENT AND PLAN: 1. Right hip fracture status post percutaneous pinning of the hip. Dr. Figueredo from Orthopedics is following this patient. From his standpoint, he mentioned this patient can be discharged. He will need to follow up in a couple weeks from the time he is discharged from rehab. He is receiving pain medications scheduled and he is feeling better. He used to receive high dosis of opioids like Roxanol at home as per hospice team. 2. Chronic deep vein thrombosis. Patient is on Eliquis. 3. Anemia of chronic disease. Hemoglobin has dropped to 7.7. If has dropped further close to 7 we may need to transfuse 1 to 2 units of blood. 4. Code status. DNR 1. 5. Disposition: At this point, we are awaiting for a bed in rehab facility. cc: Jose Manuel Guerra MD MTDD
[2018-07-27] MEDS: PERICOLACE PO PRN (16:48)
[2018-07-28] MEDS: ATROPINE 1 % OPHTH SOLN RIGHT EYE SCH ×7 (02:00→22:54)
[2018-07-28] MEDS: PERCOCET-10 PO SCH ×4 (04:16→22:53)
--- NOTE | 2018-07-28 08:20 | PROGRESS NOTE ---
DATE: 07/28/2018 SUBJECTIVE: Mr. Arriaga is lying in bed this morning. Overall feeling okay. Right hip is hurting him a little bit. OBJECTIVE: On right lower extremity exam, the brad are intact. The wound is intact. There is no erythema or drainage around the wound. He has good dorsiflexion and plantar flexion of the foot. ASSESSMENT: Status post right closed reduction and percutaneous pinning of hip. PLAN: Mr. Arriaga is touchdown weightbearing to the right lower extremity. financial services agent is working on discharge placement. I will need see him in a week or two to get the brad out and get x-rays in the office. cc: Live Hall MD
[2018-07-28] MEDS ORDERED: DULCOLAX PR ONE (10:35)
[2018-07-28] MEDS: ELIQUIS PO SCH ×2 (10:44→22:53)
[2018-07-28] MEDS: VITAMIN B-12 PO SCH (10:44)
[2018-07-28] MEDS: FLOMAX PO SCH (10:44)
[2018-07-28] MEDS: FERROUS SULFATE PO SCH (10:44)
[2018-07-28] MEDS: PERIDEX MT SCH ×2 (10:44→22:52)
[2018-07-28] MEDS: PERICOLACE PO PRN (10:48)
[2018-07-28] MEDS: MIRALAX PO SCH (14:12)
[2018-07-28] MEDS ORDERED: FLEET ENEMA PR ONE (16:07)
[2018-07-28 16:57] LABS: BASO# 0.02 X1000 (0.0-0.2); BASO% 0.2 % (0.0-0.8); EOS# 0.23 X1000 (0.0-0.7); EOS% 2.8 % (0.0-10.0); HEMATOCRIT 30.7 % (42.0-52.0); IMM GRAN# 0.03 X1000 (0.0-0.04); IMM GRAN% 0.4 % (0.0-0.5); LYMPH# 1.31 X1000 (1.2-3.4); LYMPH% 15.8 % (20.5-51.1); MCH 25.5 PG (27-31); MCHC 29.3 g/dL (33-37); MONO# 0.78 X1000 (0.11-0.59); MONO% 9.4 % (1.7-9.3); MPV 9.7 FL (7.4-10.4); NEUT% 71.4 % (42.2-75.2); PLT 249 X1000 (130-400); RBC 3.53 XMIL (4.7-6.1); RDW 21.5 % (11.5-14.5); WBC 8.27 X1000 (4.8-10.8)
[2018-07-28 17:05] LABS: AGAP 11; BUN 13 mg/dL (8-22); CALCIUM 8.9 mg/dL (8.8-10.2); CHLORIDE 97 mmol/L (98-107); COSMO 270; CREATININE 0.8 mg/dL (0.7-1.2); ESTIMATED GFR > 60; GLUCOSE 128 mg/dL (70-104); POTASSIUM 3.4 mmol/L (3.5-5.1); SODIUM 134 mmol/L (136-145); TCO2 26 mmol/L (25-35)
[2018-07-28] MEDS ORDERED: KLOR-CON PO ONE (17:48)
--- NOTE | 2018-07-28 19:17 | Diag Imaging Result Doc PS360 ---
EXAM: KUB ABDOMEN 07/28/2018 HISTORY: abdominal pain TECHNIQUE: KUB portable at 1859 COMMENT: There is gas throughout the colon and small bowel and stool in the rectosigmoid colon. There is a [place] filter in the inferior vena cava. There has been internal fixation of the right femoral neck. IMPRESSION: Constipation. Ileus. Electronically signed by Yanick Wallace 07/28/2018 7:14 PM
--- NOTE | 2018-07-28 19:25 | PROGRESS NOTE ---
DATE: 07/28/2018 SUBJECTIVE: This patient states that he is feeling a little bit better. He is complaining of some abdominal pain. He is receiving multiple medications for constipation. I will get an x-ray just to corroborate that this patient is really constipated. Family members at the bedside. Wound looks good. OBJECTIVE: Vital Signs: Temperature 97.5, pulse 86, respiratory rate 16, blood pressure 125/66, oxygen saturation 93% on room air. HEENT: Head normocephalic. No trauma. PERRLA. Neck: Supple. No JVD. No masses. Central trachea. Chest: Clear to auscultation. No wheezing. No rales. Abdomen: Soft. Moderately distended, but positive bowel sounds. Extremities: No edema, no clubbing, no cyanosis. His right hip wound and thigh wound looks clean, dry and intact. Neurologic: The patient is alert and oriented x 3. No focal neurological deficits, but some weakness which is generalized. LABORATORY: WBC 8.2, hemoglobin 9, hematocrit 30.7, platelets 249,000. Sodium 134, potassium 3.4, chloride 97, bicarbonate 26, BUN 13, creatinine 0.8, glucose 128, calcium 8.9. ASSESSMENT AND PLAN: 1. Right hip fracture status post percutaneous pinning of the hip. Continue physical therapy. The plan is to send this patient to a rehab center. Continue with the same management. He used to receive high doses of opioids with hospice team. 2. Chronic DVT, continue with Eliquis. 3. Anemia of chronic disease. Hemoglobin dropped to 7.7, but today the hemoglobin improved to 9. I will monitor this closely. I do not think he has an active bleeding at this moment. 4. This patient is DNR level 1. 5. Disposition. At this point, we are waiting for a rehab bed. cc: Vlad Guzman MD MTDD
[2018-07-29] MEDS: NS 1,000 ML IV SCH ×2 (02:09→19:07)
[2018-07-29] MEDS: PERCOCET-10 PO SCH ×4 (05:46→22:16)
[2018-07-29] MEDS: ATROPINE 1 % OPHTH SOLN RIGHT EYE SCH ×6 (05:48→22:17)
[2018-07-29 06:38] LABS: HEMATOCRIT 26.8 % (42.0-52.0); HEMOGLOBIN 7.7 g/dL (14.0-18.0)
[2018-07-29 07:06] LABS: AGAP 9; BUN 13 mg/dL (8-22); CALCIUM 8.2 mg/dL (8.8-10.2); CHLORIDE 104 mmol/L (98-107); COSMO 280; CREATININE 0.6 mg/dL (0.7-1.2); ESTIMATED GFR > 60; GLUCOSE 104 mg/dL (70-104); POTASSIUM 4.2 mmol/L (3.5-5.1); SODIUM 140 mmol/L (136-145); TCO2 27 mmol/L (25-35)
[2018-07-29] MEDS: PERIDEX MT SCH (09:37)
[2018-07-29] MEDS: FERROUS SULFATE PO SCH (09:37)
[2018-07-29] MEDS: ELIQUIS PO SCH ×2 (09:38→22:16)
[2018-07-29] MEDS: FLOMAX PO SCH (09:38)
[2018-07-29] MEDS: MIRALAX PO SCH (09:38)
[2018-07-29] MEDS: VITAMIN B-12 PO SCH (09:39)
--- NOTE | 2018-07-29 11:59 | PROGRESS NOTE ---
DATE: 07/29/2018 SUBJECTIVE: This patient is feeling a little bit better. He is complaining of some abdominal discomfort, but better compared with yesterday. X-ray yesterday showed constipation versus ileus. He had a bowel movement today, and he is passing gas. His hemoglobin is low at 7.7, and I will transfuse this patient with 1 unit of PRBC. His abdomen is slightly distended, but positive bowel sounds. OBJECTIVE: Vital Signs: Temperature 98.7 degrees, pulse 82, respiratory rate 14, blood pressure 119/69, oxygen saturation 95% on 2 L of nasal cannula. HEENT: Head normocephalic. No trauma. PERRLA. Neck: Supple. No JVD. No masses. Central trachea. Chest: Clear to auscultation. No wheezing. No rales. Abdomen: Soft. Mildly distended, positive bowel sounds. Extremities: No edema. No clubbing. No cyanosis. Right hip wound and thigh wound look clean, dry and intact. Neurological: Alert and oriented x3. No focal deficits, but generalized weakness. LABORATORY: Hemoglobin 7.7, hematocrit 26.8, sodium 140, potassium 4.2, chloride 104, bicarbonate 27, BUN 15, creatinine 0.6, glucose 102, calcium 8.2. ASSESSMENT AND PLAN: 1. Right hip fracture status post percutaneous pinning of the hip. Continue physical therapy. The plan is to send this patient to a rehab center. We will continue with the same management. 2. Mild abdominal distention with possible constipation. I have placed this patient on MiraLAX twice a day and suppository during the night. He had a bowel movement. Continue to monitor. 3. Chronic DVT. Continue with Eliquis. 4. Anemia of chronic disease. Hemoglobin dropped to 7.7. I will transfuse this patient with 1 unit of PRBC. 5. This patient is Do Not Resuscitate Level 1. 6. Disposition. At this point, we are waiting for a rehab bed. cc: Vlad Guzman MD
[2018-07-29] MEDS: PERICOLACE PO PRN (12:04)
[2018-07-30] MEDS: PERIDEX MT SCH ×3 (02:08→21:07)
[2018-07-30] MEDS: ATROPINE 1 % OPHTH SOLN RIGHT EYE SCH ×6 (02:08→21:10)
[2018-07-30] MEDS: PERCOCET-10 PO SCH ×4 (05:00→22:02)
[2018-07-30 05:56] LABS: BASO# 0.02 X1000 (0.0-0.2); BASO% 0.3 % (0.0-0.8); EOS# 0.27 X1000 (0.0-0.7); EOS% 3.7 % (0.0-10.0); HEMATOCRIT 28.7 % (42.0-52.0); HEMOGLOBIN 8.5 g/dL (14.0-18.0); LYMPH# 1.63 X1000 (1.2-3.4); LYMPH% 22.5 % (20.5-51.1); MCH 25.6 PG (27-31); MCHC 29.6 g/dL (33-37); MCV 86.4 FL (81-99); MONO# 0.63 X1000 (0.11-0.59); MONO% 8.7 % (1.7-9.3); MPV 9.8 FL (7.4-10.4); NEUT# 4.69 X1000 (1.4-6.5); NEUT% 64.8 % (42.2-75.2); PLT 248 X1000 (130-400); RBC 3.32 XMIL (4.7-6.1); RDW 20.4 % (11.5-14.5); WBC 7.24 X1000 (4.8-10.8)
[2018-07-30] MEDS: NS 1,000 ML IV SCH ×2 (06:34→17:58)
[2018-07-30] MEDS: MIRALAX PO SCH (09:34)
[2018-07-30] MEDS: FERROUS SULFATE PO SCH (09:35)
[2018-07-30] MEDS: ELIQUIS PO SCH ×2 (09:35→21:07)
[2018-07-30] MEDS: VITAMIN B-12 PO SCH (09:35)
[2018-07-30] MEDS: FLOMAX PO SCH (09:35)
[2018-07-30] MEDS: PERICOLACE PO PRN (17:29)
--- NOTE | 2018-07-30 17:53 | PROGRESS NOTE ---
DATE: 07/30/2018 SUBJECTIVE: No big changes compared with yesterday. He is status post 1 PRBC. Hemoglobin improved from 7.7 to 8.5. We will continue to monitor. OBJECTIVE: Vital Signs: Temperature 98.9 degrees, pulse 80, respiratory rate 16, blood pressure 128/70, oxygen saturation 95% on nasal cannula. HEENT: Head normocephalic. No trauma. PERRLA. Neck: Supple. No JVD. No masses. Central trachea. Chest: Clear to auscultation. No wheezing. No rales. Abdomen: Soft. Positive bowel sounds. Extremities: No edema. No clubbing. No cyanosis. Right hip wound and thigh wound look looks clean, dry and intact. Neurological: The patient is alert and oriented x3. No focal deficits but generalized weakness. LABORATORY: WBC 7.2, hemoglobin 8.5, hematocrit 28.7, platelets 248,000. ASSESSMENT AND PLAN: 1. Right hip fracture status post percutaneous pinning of the hip, continue physical therapy. The plan is to send this patient to a rehab center. We will continue with the same management. 2. Mild abdominal distention with possible constipation. He had a bowel movement already. We will continue with the same bowel regimen. 3. Chronic deep venous thrombosis. Continue with Eliquis. 4. Anemia of chronic disease. Hemoglobin dropped to 7.7, but increased after transfusion to 8.5, stable. 5. This patient is DNR level 1. 6. Disposition. Hopefully tomorrow this patient will be discharged to a rehab center. cc: Vlad Guzman MD
[2018-07-30] MEDS: DULCOLAX PR SCH ×2 (18:18→20:59)
--- NOTE | 2018-07-30 21:09 | Diag Imaging Result Doc PS360 ---
EXAM: CHEST-PORTABLE INDICATION: Placement for rehab TECHNIQUE: One view COMPARISON: 04/04/2017 FINDINGS: Inspiration is suboptimal. This is causing central vascular crowding. Minimal left basilar atelectasis and/or scarring is unchanged. The lungs appear to be grossly clear, otherwise. There is no discrete pleural fluid collection or pneumothorax. Cardiac silhouette is borderline prominent but stable. Central vasculature is unremarkable. IMPRESSION: Essentially stable chest with no definite acute pathology. Electronically signed by Urban Cunningham 07/30/2018 9:07 PM
[2018-07-31] MEDS: MIRALAX PO SCH ×2 (00:54→09:52)
[2018-07-31] MEDS: ATROPINE 1 % OPHTH SOLN RIGHT EYE SCH ×3 (03:20→10:01)
[2018-07-31] MEDS: DILAUDID IV PRN (03:24)
[2018-07-31] MEDS: PERCOCET-10 PO SCH ×2 (04:27→09:49)
[2018-07-31] MEDS: NS 1,000 ML IV SCH (05:38)
[2018-07-31 06:02] LABS: HEMATOCRIT 29.4 % (42.0-52.0); HEMOGLOBIN 8.8 g/dL (14.0-18.0); MCHC 29.9 g/dL (33-37); MPV 9.7 FL (7.4-10.4); RBC 3.38 XMIL (4.7-6.1); RDW 20.2 % (11.5-14.5); WBC 8.25 X1000 (4.8-10.8)
[2018-07-31 06:23] LABS: AGAP 9; BUN 10 mg/dL (8-22); CHLORIDE 100 mmol/L (98-107); COSMO 273; CREATININE 0.6 mg/dL (0.7-1.2); ESTIMATED GFR > 60; GLUCOSE 105 mg/dL (70-104); POTASSIUM 4.3 mmol/L (3.5-5.1); SODIUM 137 mmol/L (136-145); TCO2 28 mmol/L (25-35)
[2018-07-31] MEDS: ELIQUIS PO SCH (09:48)
[2018-07-31] MEDS: VITAMIN B-12 PO SCH (09:49)
[2018-07-31] MEDS: FLOMAX PO SCH (09:49)
[2018-07-31] MEDS: PERIDEX MT SCH (09:49)
[2018-07-31] MEDS: FERROUS SULFATE PO SCH (09:49)
[2018-07-31] MEDS ORDERED: LACTULOSE PO SCH (10:30)
--- NOTE | 2018-07-31 12:07 | DISCHARGE SUMMARY ---
ADMISSION DATE: 07/23/2018 DISCHARGE DATE: DISCHARGE DIAGNOSES: 1. Right hip fracture. 2. Status post right hip closed reduction and percutaneous pinning of the hip. 3. Constipation. 4. Chronic deep venous thrombosis. 5. Anemia of chronic disease. 6. History of abdominal aortic aneurysm. 7. Benign prostatic hypertrophy. 8. This patient is DNR level 1, and he has been in hospice prior to this hospitalization. HOSPITAL COURSE: An 88-year-old male, who is on hospice and is DNR level 1, past medical history of BPH, chronic DVT, aortic aneurysm. [facility] with his , admitted on 07/23/2018. He tried to get up to go to the restroom, and fell hitting on his left hip. He did not have loss of consciousness. He did not hit his head; however, CT of the brain was done to rule out acute intracranial hemorrhage and actually was negative. X-ray did show a right femoral neck fracture. He was admitted to the medical floor, and orthopedic surgery department was consulted and the plan was discussed. They recommended surgical intervention. On 07/24/2018, a right closed reduction and percutaneous pinning of the right hip was done. The patient tolerated the procedure well. After the procedure, he was alert and oriented. He is hard of hearing. His has been always at the bedside. He has been complaining of constipation. We did an x-ray that showed constipation and the possibility of ileus, but this patient is passing gas really good, and having just mild abdominal distention. No nausea, no vomiting, and no abdominal pain. Positive bowel sounds everywhere. It is documented that the last time he had a bowel movement was on 07/29/2017 at 4:30 a.m. or so. We have requested physical therapy and occupational therapy for this patient, and he will be discharged to a rehab center with a strict followup by his primary care doctor in 1 week, also follow up by Dr. Hall in 10 days to remove the brad and do a new x-ray. At the moment of discharge, this patient was in a stable medical condition. He is tolerating p.o. He is complaining of right hip pain as well. But of course, that is related to the surgery. OBJECTIVE: Vital Signs: Temperature 97.8 degrees, pulse 94, respiratory rate 20, blood pressure 121/75, oxygen saturation 94% on room air. HEENT: Head normocephalic. No trauma. PERRLA. Neck: Supple. No JVD. No masses. Central trachea. Chest: Clear to auscultation. No wheezing. Some crepitations at the bases. Cardiovascular: RRR. Abdomen: Soft, nontender, nondistended. Positive bowel sounds. Extremities: Right hip wound and thigh wounds look good. The wounds look clean, dry, and intact. He has chronic venous stasis changes. Neurological: The patient is alert and oriented x3. No focal deficits but generalized weakness. LABORATORY: WBC 8.2, hemoglobin 8.8, hematocrit 29.4, platelets 301,000. Sodium 137, potassium 4.3, chloride 100, bicarbonate 28, BUN 10, creatinine 0.6, glucose 105, calcium 8. DISCHARGE MEDICATIONS: Atropine 1% ophthalmic solution, 2 drops in the right eye q.4 hours, tamsulosin 0.4 mg p.o. daily, Senna laxative tablet 50 mg p.o. p.r.n. constipation, vitamin B12 1000 mcg p.o. daily, carboxymethylcellulose sodium, TheraTears one application daily as needed, Eliquis 5 mg p.o. twice a day, bisacodyl 10 mg p.o. daily p.r.n. constipation, acetaminophen 650 mg p.o. daily pain/fever, Phenergan 25 mg p.o. p.r.n. nausea, morphine ER 60 mg p.o. q.12 hours as needed, lactulose 30 mg p.o. b.i.d. That could be decreased if the patient is having more than 2 bowel movements per day, haloperidol 1 mg p.o. q.4 hours as needed for agitation, ferrous sulfate 325 mg p.o. daily. TIME DISCHARGING THIS PATIENT: 35 minutes. cc: Vlad Guzman MD
[2018-07-31 12:14] VITALS: BP 122/75
== END 2018-07-31 14:13 | DRG 481 ==
LOC: P.ED 18:44 → 4N 22:43 → SUATTDRO 22:43 → 4N 23:13
PROVIDERS: ATTEND Internal Medicine
CPT/HCPCS: 36430; 51702; 70450; 71010; 71045; 72125; 73502; 74000; 74018; 76000; 80048; 80053; 81001; 82607; 82728; 82746; 83540; 83550; 83735; 84443; 85014; 85018; 85025; 85027; 85610; 86850; 86900; 86901; 86920; 87077; 87088; 87186; 93005; 93010; 94761; 94799; 96374; 96375; 97110; 97162; 97530; 99285; A9270; J0690; J1170; J2270; J2405; J3010; J7030; P9016